=== PATIENT | male | born 1950 | race Two or more races ===

== ENCOUNTER 2018-08-05 13:31 | Inpatient (IN) | payer MEDICARE, MEDICAID ==
[~2018-08-05] VITALS: Ht 172.7 cm; Wt 89.8 kg
[2018-08-05 13:50] VITALS: BP 183/105
[2018-08-05] MEDS ORDERED: Vancomycin 1.5gm/D5W 250ml 250 ML IVPB ONE (14:00)
[2018-08-05 14:58] LABS: ANION GAP 9 mmol/L (5-15); BLOOD UREA NITROGEN 18 mg/dL (7-18); CALCIUM 8.9 MG/DL (8.5-10.1); CARBON DIOXIDE 29 MMOL/L (21-32); CHLORIDE 95 MMOL/L (98-107); CREATININE 1.2 MG/DL (0.55-1.30); POTASSIUM 4.7 MMOL/L (3.5-5.1); SODIUM 132 MMOL/L (136-145)
[2018-08-05 15:00] VITALS: BP 131/83
[2018-08-05 15:02] LABS: ALANINE AMINOTRANSFERASE 28 U/L (12-78); ALBUMIN 3.6 G/DL (3.4-5.0); ALBUMIN/GLOBULIN RATIO 0.8 (1.0-2.7); ALKALINE PHOSPHATASE 88 U/L (46-116); ASPARTATE AMINO TRANSFERASE 21 U/L (15-37); BILIRUBIN,TOTAL 0.6 MG/DL (0.2-1.0)
[2018-08-05 15:06] LABS: BASOPHILS % (AUTO) 0.5 % (0.0-2.0); EOSINOPHILS % (AUTO) 1.8 % (0.0-3.0); HEMATOCRIT 48.6 % (42.0-52.0); HEMOGLOBIN 16.1 G/DL (14.2-18.0); LYMPHOCYTES % (AUTO) 26.8 % (20.0-45.0); MEAN CORPUSCULAR VOLUME 88 FL (80-99); MONOCYTES % (AUTO) 7.8 % (1.0-10.0); NEUTROPHILS % (AUTO) 63.1 % (45.0-75.0); PLATELET COUNT 252 K/UL (150-450); RED BLOOD COUNT 5.51 M/UL (4.70-6.10); RED CELL DISTRIBUTION WIDTH 12.8 % (11.6-14.8); WHITE BLOOD COUNT 6.9 K/UL (4.8-10.8)
--- NOTE | 2018-08-05 15:28 | Emergency Room Report ---
History of Present Illness General Chief Complaint: Skin Rash/Abscess Source: Patient Present Illness HPI 68-year-old male presents ED for evaluation. Patient states he's had a ulcer to his right ankle for the last 2 months. States it is not healing with wound care and antibiotics. Was referred here. Pain is 9 out of 10, sharp, nonradiating. Denies fevers or chills. No other aggravating relieving factors. Denies any other associated symptoms Allergies: Coded Allergies: No Known Allergies (Unverified , 08/05/18) Patient History Past Medical History: DM, HTN Past Surgical History: none Pertinent Family History: none Social History: Denies: smoking, alcohol use, drug use Immunizations: UTD Reviewed Nursing Documentation: PMH: Agreed; PSxH: Agreed Nursing Documentation-PMH Hx Hypertension: Yes Hx Diabetes: Yes Review of Systems All Other Systems: negative except mentioned in HPI Physical Exam Vital Signs Date Time Temp Pulse Resp B/P (MAP) Pulse Ox O2 Delivery O2 Flow Rate FiO2 08/05/18 13:34 98.3 89 18 183/105 98 Room Air 98.2 Sp02 EP Interpretation: reviewed, normal General Appearance: no apparent distress, alert, GCS 15, non-toxic Head: normocephalic Eyes: bilateral eye normal inspection, bilateral eye PERRL ENT: normal ENT inspection Neck: normal inspection Respiratory: normal inspection Cardiovascular #1: normal inspection Gastrointestinal: normal inspection Rectal: deferred Genitourinary: no CVA tenderness Musculoskeletal: normal inspection Neurologic: alert, oriented x3, responsive, motor strength/tone normal, sensory intact, speech normal Psychiatric: judgement/insight normal, memory normal, mood/affect normal, no suicidal/homicidal ideation Skin: other - 3x3cm ulceration to R ankle. discharge Lymphatic: normal inspection Medical Decision Making Diagnostic Impression: Primary Impression: Non-healing ulcer of ankle Qualified Codes: L97.319 - Non-pressure chronic ulcer of right ankle with unspecified severity ER Course Hospital Course 68-year-old male presents to ED with ulceration to R ankle Differential diagnoses include: Cellulitis, abscess, rash. Clinical course Patient placed on stretcher. After initial history and physical I ordered labs , blood Cx, Wound Cx labs reviewed - no leukocytosis, Hb/Hct stable, no electrolyte abnormalities. antibiotics given. Case discussed with Dr Lynn and he agreed to accept the patient to his service for further care and support Diagnosis - non healign ulcer of ankle Patient admitted to floor in serious condition Labs Test 08/05/18 14:00 White Blood Count 6.9 K/UL (4.8-10.8) Red Blood Count 5.51 M/UL (4.70-6.10) Hemoglobin 16.1 G/DL (14.2-18.0) Hematocrit 48.6 % (42.0-52.0) Mean Corpuscular Volume 88 FL (80-99) Mean Corpuscular Hemoglobin 29.2 PG (27.0-31.0) Mean Corpuscular Hemoglobin Concent 33.1 G/DL (32.0-36.0) Red Cell Distribution Width 12.8 % (11.6-14.8) Platelet Count 252 K/UL (150-450) Mean Platelet Volume 5.7 FL (6.5-10.1) Neutrophils (%) (Auto) 63.1 % (45.0-75.0) Lymphocytes (%) (Auto) 26.8 % (20.0-45.0) Monocytes (%) (Auto) 7.8 % (1.0-10.0) Eosinophils (%) (Auto) 1.8 % (0.0-3.0) Basophils (%) (Auto) 0.5 % (0.0-2.0) Sodium Level 132 MMOL/L (136-145) Potassium Level 4.7 MMOL/L (3.5-5.1) Chloride Level 95 MMOL/L (98-107) Carbon Dioxide Level 29 MMOL/L (21-32) Anion Gap 9 mmol/L (5-15) Blood Urea Nitrogen 18 mg/dL (7-18) Creatinine 1.2 MG/DL (0.55-1.30) Estimat Glomerular Filtration Rate > 60 mL/min (>60) Glucose Level 275 MG/DL (74-106) Lactic Acid Level 2.50 mmol/L (0.4-2.0) Calcium Level 8.9 MG/DL (8.5-10.1) Total Bilirubin 0.6 MG/DL (0.2-1.0) Aspartate Amino Transf (AST/SGOT) 21 U/L (15-37) Alanine Aminotransferase (ALT/SGPT) 28 U/L (12-78) Alkaline Phosphatase 88 U/L (46-116) Total Protein 8.0 G/DL (6.4-8.2) Albumin 3.6 G/DL (3.4-5.0) Globulin 4.4 g/dL Albumin/Globulin Ratio 0.8 (1.0-2.7) Last Vital Signs Date Time Temp Pulse Resp B/P (MAP) Pulse Ox O2 Delivery O2 Flow Rate FiO2 08/05/18 13:34 98.3 89 18 183/105 98 Room Air 98.2 Status: improved Disposition: ADMITTED INPATIENT Condition: Serious Referrals: NON PHYSICIAN (PCP) Rogerio Kamara MD Aug 05, 2018 15:28
[2018-08-05 16:00] VITALS: BP 152/76
[2018-08-05 17:09] VITALS: BP 167/97
[2018-08-05] MEDS ORDERED: Albuterol/Ipratropium 3ml neb HHN PRN (17:30)
[2018-08-05] MEDS ORDERED: Miralax 17gm pkt ORAL PRN (17:30)
[2018-08-05] MEDS ORDERED: Nitroglycerin Subl 0.4mg tab SL PRN (17:30)
[2018-08-05] MEDS: Cefepime HCl 2 GM in D5W 110 ML IV SCH (18:15)
[2018-08-05 20:00] VITALS: BP 143/94
[2018-08-05] MEDS: Heparin 5000 units/ml inj SUBQ SCH (20:32)
[2018-08-05] MEDS: NovoLOG Insulin Flexpen SUBQ SCH (20:33)
[2018-08-05 23:58] VITALS: BP 134/84
[2018-08-06] MEDS: Morphine Sulfate 2mg/ml Inj IVP PRN ×2 (01:02→08:02)
[2018-08-06] MEDS ORDERED: Vancomycin 1 GM in D5W 275 ML IVPB SCH (02:00)
[2018-08-06 04:00] VITALS: BP 137/102
[2018-08-06] MEDS: NovoLOG Insulin Flexpen SUBQ SCH ×4 (05:53→21:11)
[2018-08-06 07:19] LABS: BASOPHILS % (AUTO) 0.5 % (0.0-2.0); EOSINOPHILS % (AUTO) 1.9 % (0.0-3.0); HEMOGLOBIN 15.5 G/DL (14.2-18.0); LYMPHOCYTES % (AUTO) 29.1 % (20.0-45.0); MEAN CORPUSCULAR VOLUME 89 FL (80-99); MONOCYTES % (AUTO) 8.6 % (1.0-10.0); NEUTROPHILS % (AUTO) 59.8 % (45.0-75.0); PLATELET COUNT 222 K/UL (150-450); RED BLOOD COUNT 5.16 M/UL (4.70-6.10); RED CELL DISTRIBUTION WIDTH 13.5 % (11.6-14.8); WHITE BLOOD COUNT 7.5 K/UL (4.8-10.8)
[2018-08-06 07:32] LABS: ALANINE AMINOTRANSFERASE 29 U/L (12-78); ALBUMIN 3.5 G/DL (3.4-5.0); ALBUMIN/GLOBULIN RATIO 0.8 (1.0-2.7); ALKALINE PHOSPHATASE 77 U/L (46-116); ASPARTATE AMINO TRANSFERASE 20 U/L (15-37); BILIRUBIN,TOTAL 0.7 MG/DL (0.2-1.0); BLOOD UREA NITROGEN 16 mg/dL (7-18); CHLORIDE 96 MMOL/L (98-107); CREATININE 1.1 MG/DL (0.55-1.30); POTASSIUM 5.3 MMOL/L (3.5-5.1); SODIUM 132 MMOL/L (136-145)
[2018-08-06 08:00] VITALS: BP 143/100
[2018-08-06] MEDS: Cefepime HCl 2 GM in D5W 110 ML IV SCH (08:03)
[2018-08-06] MEDS: Heparin 5000 units/ml inj SUBQ SCH ×2 (08:05→21:15)
--- NOTE | 2018-08-06 09:50 | Consultation ---
History of Present Illness General Date patient seen: Aug 06, 2018 Chief Complaint: Skin Rash/Abscess Reason for Consultation: Ulcer Present Illness HPI Mr. Fitch is a 68 yo male who presented to the ED on 08/05/18 with right ankle ulcer. The patient is diabetic and reports that the ulcer have been present for 2 months. He has been to his MD but wound care and antibiotics have not helped. He reports no Fever, Chill, Purulent drainage from the ulcer. The ulcer is painful however. He underwent to coursed of PO antibiotics: One week of cephalexin in May and one week of Bactrim at the end of June. Neither helped. He was told by a esthetician facialist that he needed debridment and vascular evaluation but he refused at that time. He is more open to this now. ID was consulted for antibiotic treatment of ankle ulcer PMHx/PSHx DM HTN SocHx No E/T/D FamHx Mom -DM Allergies: Coded Allergies: No Known Allergies (Unverified , 08/05/18) Medication History Unable to Obtain Active Prescriptions or Reported Meds Patient History Healthcare decision maker N Resuscitation status Advanced Directive on File Review of Systems All Other Systems: negative except mentioned in HPI Physical Exam Last 24 Hour Vital Signs Date Time Temp Pulse Resp B/P (MAP) Pulse Ox O2 Delivery O2 Flow Rate FiO2 08/06/18 08:02 97.7 08/06/18 04:00 97.7 85 18 137/102 (114) 97 97.7 08/05/18 23:58 98.7 78 17 134/84 (101) 99 98.7 08/05/18 21:00 Room Air 08/05/18 20:00 98.2 90 20 143/94 (110) 96 98.2 08/05/18 18:46 167/97 08/05/18 17:17 Room Air 08/05/18 17:09 97.9 92 20 167/97 (120) 99 97.9 08/05/18 16:36 98.4 86 25 147/74 98 Room Air 08/05/18 16:00 98.5 86 24 152/76 98 Room Air 98.5 08/05/18 15:00 97.8 98 25 131/83 98 97.8 08/05/18 13:50 98.2 92 18 183/105 98 Room Air 98.2 08/05/18 13:34 98.3 89 18 183/105 98 Room Air 98.2 Intake and Output 08/05/18 08/06/18 19:00 07:00 Intake Total 450 ml 300 ml Balance 450 ml 300 ml Intake Oral 230 ml 300 ml IV Total 220 ml # Voids 1 2 Laboratory Tests Test 08/05/18 14:00 08/05/18 16:15 08/06/18 05:20 White Blood Count 6.9 K/UL (4.8-10.8) 7.5 K/UL (4.8-10.8) Red Blood Count 5.51 M/UL (4.70-6.10) 5.16 M/UL (4.70-6.10) Hemoglobin 16.1 G/DL (14.2-18.0) 15.5 G/DL (14.2-18.0) Hematocrit 48.6 % (42.0-52.0) 46.0 % (42.0-52.0) Mean Corpuscular Volume 88 FL (80-99) 89 FL (80-99) Mean Corpuscular Hemoglobin 29.2 PG (27.0-31.0) 30.0 PG (27.0-31.0) Mean Corpuscular Hemoglobin Concent 33.1 G/DL (32.0-36.0) 33.7 G/DL (32.0-36.0) Red Cell Distribution Width 12.8 % (11.6-14.8) 13.5 % (11.6-14.8) Platelet Count 252 K/UL (150-450) 222 K/UL (150-450) Mean Platelet Volume 5.7 FL (6.5-10.1) L 5.8 FL (6.5-10.1) L Neutrophils (%) (Auto) 63.1 % (45.0-75.0) 59.8 % (45.0-75.0) Lymphocytes (%) (Auto) 26.8 % (20.0-45.0) 29.1 % (20.0-45.0) Monocytes (%) (Auto) 7.8 % (1.0-10.0) 8.6 % (1.0-10.0) Eosinophils (%) (Auto) 1.8 % (0.0-3.0) 1.9 % (0.0-3.0) Basophils (%) (Auto) 0.5 % (0.0-2.0) 0.5 % (0.0-2.0) Sodium Level 132 MMOL/L (136-145) L 132 MMOL/L (136-145) L Potassium Level 4.7 MMOL/L (3.5-5.1) 5.3 MMOL/L (3.5-5.1) H Chloride Level 95 MMOL/L (98-107) L 96 MMOL/L (98-107) L Carbon Dioxide Level 29 MMOL/L (21-32) Pending Anion Gap 9 mmol/L (5-15) Blood Urea Nitrogen 18 mg/dL (7-18) 16 mg/dL (7-18) Creatinine 1.2 MG/DL (0.55-1.30) 1.1 MG/DL (0.55-1.30) Estimat Glomerular Filtration Rate > 60 mL/min (>60) > 60 mL/min (>60) Glucose Level 275 MG/DL (74-106) H 191 MG/DL (74-106) H Lactic Acid Level 2.50 mmol/L (0.4-2.0) H 2.30 mmol/L (0.66-2.22) H Calcium Level 8.9 MG/DL (8.5-10.1) 9.0 MG/DL (8.5-10.1) Total Bilirubin 0.6 MG/DL (0.2-1.0) 0.7 MG/DL (0.2-1.0) Aspartate Amino Transf (AST/SGOT) 21 U/L (15-37) 20 U/L (15-37) Alanine Aminotransferase (ALT/SGPT) 28 U/L (12-78) 29 U/L (12-78) Alkaline Phosphatase 88 U/L (46-116) 77 U/L (46-116) Total Protein 8.0 G/DL (6.4-8.2) 7.8 G/DL (6.4-8.2) Albumin 3.6 G/DL (3.4-5.0) 3.5 G/DL (3.4-5.0) Globulin 4.4 g/dL 4.3 g/dL Albumin/Globulin Ratio 0.8 (1.0-2.7) L 0.8 (1.0-2.7) L Height (Feet): 5 Height (Inches): 8.00 Weight (Pounds): 198 Medications Current Medications Medications (Trade) Dose Ordered Sig/Caroline Route PRN Reason Start Time Stop Time Status Last Admin Dose Admin Acetaminophen (Tylenol) 650 mg Q4H PRN ORAL T>100.5 08/05/18 17:30 09/04/18 17:29 Albuterol/ Ipratropium (Albuterol/ Ipratropium) 3 ml Q4H PRN HHN Shortness of Breath 08/05/18 17:30 08/10/18 17:29 Cefepime HCl 2 gm/ Dextrose 110 ml @ 220 mls/hr EVERY 12 HOURS IV 08/05/18 18:30 08/12/18 18:29 08/06/18 08:03 Clonidine HCl (Catapres Tab) 0.1 mg Q6H PRN ORAL SBP>160 08/05/18 18:45 09/04/18 18:44 08/05/18 18:46 Dextrose (Dextrose 50%) 25 ml PRN IV hypoglycemia 08/05/18 17:30 09/04/18 17:29 Dextrose (Dextrose 50%) 50 ml PRN IV hypoglycemia 08/05/18 17:30 09/04/18 17:29 Heparin Sodium (Porcine) (Heparin 5000 units/ml) 5,000 units EVERY 12 HOURS SUBQ 08/05/18 21:00 09/04/18 20:59 08/06/18 08:05 Insulin Aspart (NovoLOG) BEFORE MEALS AND HS SUBQ 08/05/18 21:00 09/04/18 20:59 08/06/18 05:53 Morphine Sulfate (Morphine Sulfate) 2 mg Q4H PRN IVP Moderate Pain (Pain Scale 4-6) 08/05/18 17:30 08/12/18 17:29 08/06/18 08:02 Nitroglycerin (Ntg) 0.4 mg Q5MIN X 3 DOSES PRN SL Prn Chest Pain 08/05/18 17:30 09/04/18 17:29 Ondansetron HCl (Zofran) 4 mg Q6H PRN IVP Nausea & Vomiting 08/05/18 17:30 09/04/18 17:29 Polyethylene Glycol (Miralax) 17 gm DAILYPRN PRN ORAL Constipation 08/05/18 17:30 09/04/18 17:29 Temazepam (Restoril) 15 mg HSPRN PRN ORAL Insomnia 08/05/18 21:00 08/12/18 20:59 Vancomycin HCl (Vanco rx to dose) 1 ea DAILY PRN MISC . 08/05/18 17:45 09/04/18 17:44 Vancomycin HCl 1 gm/Dextrose 275 ml @ 183.3 mls/ hr Q12HR@0200,1400 IVPB 08/06/18 02:00 08/11/18 01:59 08/06/18 01:52 Objective Narrative Gen: NAD, well appearing, alert, On RA HEENT: NCAT, MMM, EOMI, PERRL, No Oral lesion, no scleral icterus~ NECK: full range of motion, supple, no meningismus, No LAD, No JVD LUNGS: CTAB, No W/C, No Accessory muscle use CARDS: RRR, S1, S2, No M/R/G ABD: Soft, NT, ND, No R/G, + BS, No HSM, No Masses : Deferred Ext: C/C/E, Pulses 2+ B/L (DP, Rad), Right ankle with 3x3 cm ulcer with no discharge. No foul odor. NEURO: A/O x 4, Strength and Sensation Grossly intact PSYCH: mood/affect normal SKIN: warm/dry, No rashes, Assessment/Plan Assessment/Plan Right ankle ulcer No Sign of active infection Wound Cx pending DM HTN P: D/C Abx Vancomycin and Cefepime. Podiatry or vascular surgery evaluation Patient may need revascularization to facilitate healing f/u wound culture Monitor CBC and Temps Thank you for this consult. We will continue to follow the patient during this hospitalization. Tripp Canas MD Aug 06, 2018 09:50
[2018-08-06 10:05] LABS: CARBON DIOXIDE 28 MMOL/L (21-32)
[2018-08-06 10:06] LABS: ANION GAP 11 mmol/L (5-15)
[2018-08-06 12:00] VITALS: BP 161/98
--- NOTE | 2018-08-06 13:36 | General Progress Note ---
Progress Note Progress Note [id number] full note dictated Ginna Walker MD Aug 06, 2018 13:36
--- NOTE | 2018-08-06 14:01 | Consultation ---
Consult Note Assessment/Plan A/ 1) Chronic ulcer medial right ankle 2) DM 3) Pain RLE P/ 1) Possible claudication symptoms - arterial ultz BLE 2) X-ray right ankle 3) Wound care orders using Santyl 4) ESR, CRP 5) Will follow Thank you Jack Ch DPM Aug 06, 2018 14:01
--- NOTE | 2018-08-06 14:31 | Consultation ---
History of Present Illness General Date patient seen: Aug 06, 2018 Chief Complaint: Skin Rash/Abscess Reason for Consultation: Ulcer Present Illness HPI 68-year-old male with hx of DM, HTN presented to ED for evaluation an ulcer to his right ankle for the last 2 months. it is not healing with wound care and antibiotics. He is having pain aroundd 9 out of 10, sharp, nonradiating. Denies fevers or chills. No other aggravating relieving factors. Denies any other associated symptoms Allergies: Coded Allergies: No Known Allergies (Unverified , 08/05/18) Medication History Unable to Obtain Active Prescriptions or Reported Meds Patient History Healthcare decision maker N Resuscitation status Advanced Directive on File Past Medical/Surgical History Past Medical/Surgical History: (1) Diabetes mellitus (2) HTN (hypertension) Review of Systems All Other Systems: negative except mentioned in HPI Physical Exam General Appearance: WD/WN, no apparent distress Lines, tubes and drains: peripheral HEENT: normocephalic, atraumatic Neck: non-tender, normal alignment Respiratory/Chest: chest wall non-tender, lungs clear Breasts: no masses Cardiovascular/Chest: normal peripheral pulses Abdomen: normal bowel sounds Genitourinary/Rectal: normal genital exam Extremities: normal range of motion Skin Exam: normal pigmentation Neurologic: collar fuser II-XII grossly normal Last 24 Hour Vital Signs Date Time Temp Pulse Resp B/P (MAP) Pulse Ox O2 Delivery O2 Flow Rate FiO2 08/06/18 12:04 161/98 08/06/18 12:00 98.5 88 17 161/98 (119) 98 98.5 08/06/18 09:00 Room Air 08/06/18 08:32 97.7 08/06/18 08:02 97.7 08/06/18 08:00 98.6 96 19 143/100 (114) 94 98.6 08/06/18 04:00 97.7 85 18 137/102 (114) 97 97.7 08/05/18 23:58 98.7 78 17 134/84 (101) 99 98.7 08/05/18 21:00 Room Air 08/05/18 20:00 98.2 90 20 143/94 (110) 96 98.2 08/05/18 18:46 167/97 08/05/18 17:17 Room Air 08/05/18 17:09 97.9 92 20 167/97 (120) 99 97.9 08/05/18 16:36 98.4 86 25 147/74 98 Room Air 08/05/18 16:00 98.5 86 24 152/76 98 Room Air 98.5 08/05/18 15:00 97.8 98 25 131/83 98 97.8 Intake and Output 08/05/18 08/06/18 19:00 07:00 Intake Total 450 ml 300 ml Balance 450 ml 300 ml Intake Oral 230 ml 300 ml IV Total 220 ml # Voids 1 2 Laboratory Tests Test 08/05/18 16:15 08/06/18 05:20 Lactic Acid Level 2.30 mmol/L (0.66-2.22) H White Blood Count 7.5 K/UL (4.8-10.8) Red Blood Count 5.16 M/UL (4.70-6.10) Hemoglobin 15.5 G/DL (14.2-18.0) Hematocrit 46.0 % (42.0-52.0) Mean Corpuscular Volume 89 FL (80-99) Mean Corpuscular Hemoglobin 30.0 PG (27.0-31.0) Mean Corpuscular Hemoglobin Concent 33.7 G/DL (32.0-36.0) Red Cell Distribution Width 13.5 % (11.6-14.8) Platelet Count 222 K/UL (150-450) Mean Platelet Volume 5.8 FL (6.5-10.1) L Neutrophils (%) (Auto) 59.8 % (45.0-75.0) Lymphocytes (%) (Auto) 29.1 % (20.0-45.0) Monocytes (%) (Auto) 8.6 % (1.0-10.0) Eosinophils (%) (Auto) 1.9 % (0.0-3.0) Basophils (%) (Auto) 0.5 % (0.0-2.0) Sodium Level 132 MMOL/L (136-145) L Potassium Level 5.3 MMOL/L (3.5-5.1) H Chloride Level 96 MMOL/L (98-107) L Carbon Dioxide Level 28 MMOL/L (21-32) Anion Gap 11 mmol/L (5-15) Blood Urea Nitrogen 16 mg/dL (7-18) Creatinine 1.1 MG/DL (0.55-1.30) Estimat Glomerular Filtration Rate > 60 mL/min (>60) Glucose Level 191 MG/DL (74-106) H Calcium Level 9.0 MG/DL (8.5-10.1) Total Bilirubin 0.7 MG/DL (0.2-1.0) Aspartate Amino Transf (AST/SGOT) 20 U/L (15-37) Alanine Aminotransferase (ALT/SGPT) 29 U/L (12-78) Alkaline Phosphatase 77 U/L (46-116) Total Protein 7.8 G/DL (6.4-8.2) Albumin 3.5 G/DL (3.4-5.0) Globulin 4.3 g/dL Albumin/Globulin Ratio 0.8 (1.0-2.7) L Height (Feet): 5 Height (Inches): 8.00 Weight (Pounds): 198 Medications Current Medications Medications (Trade) Dose Ordered Sig/Caroline Route PRN Reason Start Time Stop Time Status Last Admin Dose Admin Acetaminophen (Tylenol) 650 mg Q4H PRN ORAL T>100.5 08/05/18 17:30 09/04/18 17:29 Albuterol/ Ipratropium (Albuterol/ Ipratropium) 3 ml Q4H PRN HHN Shortness of Breath 08/05/18 17:30 08/10/18 17:29 Clonidine HCl (Catapres Tab) 0.1 mg Q6H PRN ORAL SBP>160 08/05/18 18:45 09/04/18 18:44 08/06/18 12:04 Dextrose (Dextrose 50%) 25 ml PRN IV hypoglycemia 08/05/18 17:30 09/04/18 17:29 Dextrose (Dextrose 50%) 50 ml PRN IV hypoglycemia 08/05/18 17:30 09/04/18 17:29 Heparin Sodium (Porcine) (Heparin 5000 units/ml) 5,000 units EVERY 12 HOURS SUBQ 08/05/18 21:00 09/04/18 20:59 08/06/18 08:05 Insulin Aspart (NovoLOG) BEFORE MEALS AND HS SUBQ 08/05/18 21:00 09/04/18 20:59 08/06/18 11:54 Morphine Sulfate (Morphine Sulfate) 2 mg Q4H PRN IVP Moderate Pain (Pain Scale 4-6) 08/05/18 17:30 08/12/18 17:29 08/06/18 08:02 Nitroglycerin (Ntg) 0.4 mg Q5MIN X 3 DOSES PRN SL Prn Chest Pain 08/05/18 17:30 09/04/18 17:29 Ondansetron HCl (Zofran) 4 mg Q6H PRN IVP Nausea & Vomiting 08/05/18 17:30 09/04/18 17:29 Polyethylene Glycol (Miralax) 17 gm DAILYPRN PRN ORAL Constipation 08/05/18 17:30 09/04/18 17:29 Temazepam (Restoril) 15 mg HSPRN PRN ORAL Insomnia 08/05/18 21:00 08/12/18 20:59 Assessment/Plan Problem List: (1) Cellulitis ICD Codes: L03.90 - Cellulitis, unspecified SNOMED: 627567310 (2) Non-healing ulcer of ankle ICD Codes: L97.309 - Non-pressure chronic ulcer of unspecified ankle with unspecified severity SNOMED: 933564053 Qualifiers: Qualified Codes: L97.319 - Non-pressure chronic ulcer of right ankle with unspecified severity (3) Diabetes mellitus ICD Codes: E11.9 - Type 2 diabetes mellitus without complications SNOMED: 00756657 (4) HTN (hypertension) ICD Codes: I10 - Essential (primary) hypertension SNOMED: 56986350 Assessment/Plan wound care iv abx sliding scale diabetic diet monitor BP symptomatic treatment watch electrolytes. Stefanie Babcock MD Aug 06, 2018 14:31
[2018-08-06 16:00] VITALS: BP 159/76
--- NOTE | 2018-08-06 16:12 | Diagnostic Imaging Report ---
Indication: Pain, medial ankle ulcer Technique: 3 views of the right ankle Comparison: none Findings: Soft tissue ulceration overlies the medial malleolus. No underlying osseous erosions or unusual periosteal reaction. No acute fractures. No dislocations. The joint spaces are preserved. There are vascular calcifications. There are small plantar and calcaneal spurs Impression: Medial ankle soft tissue ulcer. No plain radiographic evidence of osseous myelitis. Note, however, limited sensitivity of plain radiographs for such. Consider MRI or bone scan for more sensitive characterization if there is high clinical suspicion
[2018-08-06 17:13] LABS: APPEARANCE,URINE CLEAR; BILIRUBIN, URINE NEGATIVE (NEGATIVE); COLOR,URINE PALE YELLOW; GLUCOSE, URINE (UA) 3+ (NEGATIVE); KETONES,URINE NEGATIVE (NEGATIVE); LEUKOCYTE ESTERASE ,URINE NEGATIVE (NEGATIVE); NITRITE,URINE NEGATIVE (NEGATIVE); PH,URINE 6 (4.5-8.0); PROTEIN,URINE NEGATIVE (NEGATIVE); UROBILINOGEN,URINE NORMAL MG/DL (0.0-1.0)
[2018-08-06 20:00] VITALS: BP 147/90
--- NOTE | 2018-08-06 21:00 | History and Physical Report ---
DATE OF ADMISSION: 08/05/2018 TIME: 12 noon. CONSULTANTS: 1. Stefanie Babcock M.D. 2. Dominick Adan M.D. 3. Alex Chacon M.D. 4. Jack Mckeon D.P.M. CHIEF COMPLAINT: Right ankle ulcer, nonhealing and hypertensive urgency. BRIEF HISTORY: This is a 68-year-old male who lives at home, a few months ago with slight cut in the right ankle. It gotten worse over the last became ulcerative. The patient came to the ER last night with also hypertensive urgency. The patient was admitted to medical floor for further treatment. Currently, calm in bed, sitting, no complaint. REVIEW OF SYSTEMS: No chest pain. No shortness of breath. No nausea, vomiting, or diarrhea. PAST MEDICAL HISTORY: Hypertension, diabetes, and right ankle ulcer. PAST SURGICAL HISTORY: None. ALLERGIES: Denies. SOCIAL HISTORY: No smoking. Occasional alcohol. No intravenous drug abuse. FAMILY HISTORY: Noncontributory. PHYSICAL EXAMINATION: GENERAL: Calm in bed, oriented x3, no acute distress. VITAL SIGNS: Temperature is 98 degrees, pulse 88, respirations 17, and blood pressure 161/98. CARDIOVASCULAR: No murmur. LUNGS: Distant and clear. ABDOMEN: Bowel sound positive. Nontender. Nondistended. EXTREMITIES: No cyanosis, clubbing, or edema. Right ankle dressing gauze is clean and dry. NEUROLOGIC: Cranial nerves II through XII are grossly intact. Deep tendon reflexes 2+/4. Muscle strength 5/5. LABORATORY DATA: CBC is normal. BMP shows sodium 132, potassium 5.3, chloride 96, and glucose 191. MEDICATIONS: Include vancomycin, heparin, temazepam, insulin, clonidine, albuterol, Tylenol, Zofran, nitroglycerin. ASSESSMENT: 1. Right ankle ulcer, nonhealing wound. 2. Hypertensive urgency. 3. Diabetes. 4. Hyperkalemia. PLAN: 1. Continue premedications. 2. Wound care. 3. Blood pressure and blood sugar control. 4. Antibiotics per Infectious Disease. 5. Dietary followup. 6. Pain control. 7. We will continue to follow the patient. 8. CBC and BMP in the morning. Robert Lynn D.O. DR: RYAN JOB#: [id number] CC:
--- NOTE | 2018-08-06 21:45 | Consultation ---
DATE OF CONSULTATION: 08/06/2018 NEPHROLOGY CONSULTATION CONSULTING PHYSICIAN: Ginna Walker M.D. REFERRING PHYSICIAN: Robert Lynn D.O. REASON FOR CONSULTATION: Hyponatremia and hyperkalemia. HISTORY OF PRESENT ILLNESS: The patient is a 68-year-old male with past medical history significant for history of diabetes, hypertension, diabetic neuropathy, diabetic retinopathy, history of right lower extremity ulceration for about 2 months. The patient underwent oral antibiotic treatment without any improvement. The patient was presented to emergency room, was admitted in the hospital. I was called for management of renal disease and electrolyte imbalance. PAST MEDICAL HISTORY: 1. Diabetes. 2. Hypertension. 3. Dyslipidemia. 4. Diabetic neuropathy. 5. Diabetic retinopathy. PAST SURGICAL HISTORY: None. ALLERGIES: No known drug allergies. FAMILY HISTORY: Positive for history of diabetes. REVIEW OF SYSTEMS: GENERAL: He denies any weight loss, weight gain, fever, chills or night sweats. HEAD AND NECK: Denies any dysphagia, odynophagia, blurry vision, headache, or neck stiffness. PULMONARY: Mild shortness of breath. No cough or sputum. CARDIOVASCULAR: No chest pain or palpitations. GASTROINTESTINAL: No nausea, vomiting, diarrhea, hematemesis, or hematochezia. GENITOURINARY: Denies any dysuria, frequency, or hematuria. MUSCULOSKELETAL: Denies any weakness or numbness. PHYSICAL EXAMINATION: VITAL SIGNS: The patient had temperature of 98 degrees, blood pressure of 143/100, pulse rate of 96, and respiratory rate of 18. HEAD AND NECK: No JVP. No LAD. No thyromegaly. Extraocular movement intact. Pupils are reactive to light and accommodation. LUNGS: Clear to auscultation. CARDIAC: Regular rate and rhythm. S1 and S2 no murmur. No rub. ABDOMEN: Soft, nontender, and nondistended. No organomegaly. EXTREMITIES: The right lower extremity ulceration. No edema. No clubbing. No cyanosis. LABORATORY AND DIAGNOSTIC DATA: Sodium 132, potassium 5.3, chloride 96, bicarbonate 28, BUN of 16, and creatinine of 1.1. Calcium of 9. AST of 20, ALT of 29, and alkaline phosphatase of . CBC revealed WBC count of 7.5, hemoglobin of 15 and hematocrit of 46 and platelet count of 222. ASSESSMENT: 1. Isovolemic hyponatremia. 2. Hyperkalemia. 3. Rule out . 4. Rule out obstruction. 5. Right lower extremity ulceration. 6. Diabetes. PLAN: Plan for the patient is to obtain UA and check the random urine protein creatinine ratio to calculate the proteinuria. Check the urine sodium and creatinine to calculate fractional excretion of sodium. Check a microalbumin level. I would also check scan of the bladder. I would monitor renal function and electrolytes closely. Again, I would like to thank, Dr. Robert Lynn, for allowing me to participate in the care of this patient. Ginna Walker M.D. DR: MAYO JOB#: [id number] CC:
--- NOTE | 2018-08-06 22:15 | Consultation ---
DATE OF CONSULTATION: 08/06/2018 CONSULTING PHYSICIAN: Jack Mckeon D.P.M. REQUESTING PHYSICIAN: Robert Lynn D.O. REASON FOR CONSULTATION: Chronic medial right ankle wound x2 months in the presence of diabetes mellitus. HISTORY OF PRESENT ILLNESS: The patient is a 68-year-old male, who was admitted to [facility] on 08/05/2018 for nonhealing ankle ulcer. The patient states that the wound started from a small mass on his medial right ankle and continued to progress into a full-thickness wound. He sought care from his primary care physician who prescribed the medication and topical, which ultimately failed and was referred to another physician for continued care. The patient noted that his wound continued to be nonhealing, increasingly painful and sought emergent care. The patient also complains of calf pain during ambulation and during sleeping. PAST MEDICAL HISTORY: Significant for diabetes and hypertension. MEDICATIONS: Per MAR and include vancomycin and cefepime initial doses, which have been discontinued, heparin and pain medication. ALLERGIES: He has no known drug allergies. SOCIAL HISTORY: Noncontributory. FAMILY HISTORY: Noncontributory. REVIEW OF SYSTEMS: HEENT: The patient denies any headaches, blurred vision, or ringing in the ears. CARDIORESPIRATORY: The patient denies any chest pain or shortness of breath. GENITOURINARY: The patient denies any urgency, frequency, burning upon urination or hematuria. GASTROINTESTINAL: The patient denies any constipation, diarrhea or blood in the stool. PHYSICAL EXAMINATION: VITAL SIGNS: Temperature is 98.5, pulse is 88, respirations 17, blood pressure is 161/98, and saturating 98% on room air. LOWER EXTREMITY: Vascular, weakly palpable pulses noted bilaterally. Feet are equally warm. There is 1+ pitting edema noted on the right lower extremity. No edema on the left. No cyanosis is noted. DERMATOLOGICAL: Full-thickness ulceration on the medial aspect of the right ankle, which is 50% necrotic and 50% slough. No granulation tissue noted. No bone or tendon is exposed. No discharge is noted. No malodor is noted. The periwound skin is hyperpigmented, but otherwise well defined. No other open wounds or pulses noted bilaterally. NEUROLOGICAL: Protective thresholds intact. Achilles, deep tendon reflex 2+ bilateral. No spasticity noted. MUSCULOSKELETAL: He has got 4/5 muscle strength noted in anterolateral and posterior muscle groups of bilateral lower extremities. No gross deformities noted. The patient was ambulatory. LABORATORY AND DIAGNOSTIC DATA: White blood cell count is 7.5, hemoglobin and hematocrit is 15.5 and 46.0 and platelet count is 222. Sodium is 132, potassium is 5.3, chloride is 96, BUN is 16, creatinine is 1.1 and glucose is 191. Lactic acid is 2.30. Albumin is 3.5. Cultures taken and are pending show many white blood cells, rare gram-negative rods. Lower extremity ultrasound notes no deep venous thrombosis. ASSESSMENT: 1. Chronic ulcer medial right ankle. 2. Diabetes mellitus. 3. Pain right lower extremity-claudication/rest pain?. PLAN: 1. Possible claudication and rest pain symptoms. Arterial ultrasound of bilateral lower extremities were ordered. 2. We will order x-rays of the right ankle. 3. Wound care orders were placed specifying cleansing the wound with normal saline, patting it dry and applying Santyl ointment with dry dressing daily. 4. We will order a sedimentation rate and CRP to evaluate inflammatory markers. 5. We will follow. Thank you for the courtesy of this consultation, Dr. Lynn. Jack Mckeon D.P.M. DR: CHATA JOB#: [id number] CC:
[2018-08-07] VITALS: BP 152/96
[2018-08-07] MEDS: Morphine Sulfate 2mg/ml Inj IVP PRN ×2 (01:21→11:47)
[2018-08-07 04:46] VITALS: BP 148/96
[2018-08-07] MEDS: NovoLOG Insulin Flexpen SUBQ SCH ×4 (06:17→20:44)
[2018-08-07 06:50] LABS: BASOPHILS % (AUTO) 0.4 % (0.0-2.0); EOSINOPHILS % (AUTO) 1.9 % (0.0-3.0); HEMATOCRIT 47.8 % (42.0-52.0); HEMOGLOBIN 16.1 G/DL (14.2-18.0); MEAN CORPUSCULAR VOLUME 89 FL (80-99); NEUTROPHILS % (AUTO) 57.7 % (45.0-75.0); PLATELET COUNT 240 K/UL (150-450); RED BLOOD COUNT 5.37 M/UL (4.70-6.10); RED CELL DISTRIBUTION WIDTH 13.2 % (11.6-14.8)
[2018-08-07 07:04] LABS: ALANINE AMINOTRANSFERASE 36 U/L (12-78); ALBUMIN 3.8 G/DL (3.4-5.0); ALBUMIN/GLOBULIN RATIO 0.8 (1.0-2.7); ALKALINE PHOSPHATASE 80 U/L (46-116); ANION GAP 6 mmol/L (5-15); ASPARTATE AMINO TRANSFERASE 23 U/L (15-37); BILIRUBIN,TOTAL 0.8 MG/DL (0.2-1.0); BLOOD UREA NITROGEN 15 mg/dL (7-18); CALCIUM 9.7 MG/DL (8.5-10.1); CARBON DIOXIDE 33 MMOL/L (21-32); CHLORIDE 93 MMOL/L (98-107); CREATININE 1.1 MG/DL (0.55-1.30); POTASSIUM 4.4 MMOL/L (3.5-5.1); SODIUM 132 MMOL/L (136-145)
[2018-08-07 08:00] VITALS: BP 153/113
[2018-08-07 08:20] LABS: PHOSPHORUS 4.4 MG/DL (2.5-4.9)
[2018-08-07] MEDS: Heparin 5000 units/ml inj SUBQ SCH ×2 (09:00→20:43)
--- NOTE | 2018-08-07 11:07 | Diagnostic Imaging Report ---
Indication: Bilateral leg pain Technique: Grayscale and duplex images of the bilateral lower extremity arteries Comparison: none Findings: At all levels, waveforms are either triphasic or biphasic, demonstrating sharp systolic peaks and no evidence of diminished amplitude distally Impression: Negative for evidence of lower extremity arterial insufficiency
[2018-08-07 12:00] VITALS: BP 152/98
--- NOTE | 2018-08-07 13:14 | Infectious Diseases Prog Note ---
Assessment/Plan Assessment/Plan Right ankle ulcer No Sign of active infection Wound Cx pending 08/06/18 - US - Negative for evidence of lower extremity arterial insufficiency DM HTN P: D/C Abx Vancomycin and Cefepime. f/u Podiatry recommendations f/u wound culture Monitor CBC and Temps We will continue to follow the patient during this hospitalization. Subjective Allergies: Coded Allergies: No Known Allergies (Unverified , 08/05/18) Subjective Patient with continued pain at site of ulcer No fever Objective Vital Signs Last 24 Hour Vital Signs Date Time Temp Pulse Resp B/P (MAP) Pulse Ox O2 Delivery O2 Flow Rate FiO2 08/07/18 12:00 98.5 101 18 152/98 (116) 95 98.5 08/07/18 08:30 Room Air 08/07/18 08:09 91 16 Room Air 08/07/18 08:00 97.6 105 19 153/113 (126) 96 97.6 08/07/18 04:46 97.8 96 18 148/96 (113) 97 97.8 08/07/18 01:51 98.0 08/07/18 01:21 98.0 08/07/18 00:00 98.2 85 18 152/96 (114) 99 98.2 08/06/18 21:00 Room Air 08/06/18 20:05 82 18 Room Air 08/06/18 20:00 98.0 69 18 147/90 (109) 97 98.0 08/06/18 16:00 92.4 83 18 159/76 (103) 98 92.4 Height (Feet): 5 Height (Inches): 8.00 Weight (Pounds): 198 Objective Gen: NAD, well appearing, alert HEENT: NCAT, MMM, EOMI, no scleral icterus LUNGS: CTAB, No W/C, No Accessory muscle use CARDS: RRR, S1, S2, No M/R/G ABD: Soft, NT, ND, No R/G, + BS Ext: C/C/E, Pulses 2+ B/L (DP, Rad), Right ankle with 3x3 cm ulcer covered with bandage NEURO: A/O x 4, Strength and Sensation Grossly intact Microbiology Date/Time Source Procedure Growth Status 08/05/18 14:20 Blood Blood Culture - Preliminary NO GROWTH AFTER 24 HOURS Resulted 08/05/18 14:00 Blood Blood Culture - Preliminary NO GROWTH AFTER 24 HOURS Resulted 08/05/18 14:00 Ankle Right Gram Stain - Final Resulted 08/05/18 14:00 Wound Culture - Preliminary Gram Negative Bacillus 1 YEAST Resulted Laboratory Tests Test 08/06/18 17:00 08/07/18 05:10 Urine Color Pale yellow Urine Appearance Clear Urine pH 6 (4.5-8.0) Urine Specific [place] 1.010 (1.005-1.035) Urine Protein Negative (NEGATIVE) Urine Glucose (UA) 3+ (NEGATIVE) H Urine Ketones Negative (NEGATIVE) Urine Blood Negative (NEGATIVE) Urine Nitrite Negative (NEGATIVE) Urine Bilirubin Negative (NEGATIVE) Urine Urobilinogen Normal MG/DL (0.0-1.0) Urine Leukocyte Esterase Negative (NEGATIVE) Urine RBC 0 /HPF (0 - 0) Urine WBC 0 /HPF (0 - 0) Urine Squamous Epithelial Cells None /LPF (NONE/OCC) Urine Bacteria None /HPF (NONE) Urine Eosinophils None seen (NONE SEEN) Urine Random Creatinine Pending Urine Random Microalbumin Pending Urine Random Sodium 97 mmol/L (20-110) Urine Creatinine 31.5 MG/DL (30.0-125.0) Urine Microalbumin/Creatinine Ratio Pending Urine Potassium Timed 25 mmol/L (12-62) White Blood Count 8.0 K/UL (4.8-10.8) Red Blood Count 5.37 M/UL (4.70-6.10) Hemoglobin 16.1 G/DL (14.2-18.0) Hematocrit 47.8 % (42.0-52.0) Mean Corpuscular Volume 89 FL (80-99) Mean Corpuscular Hemoglobin 30.0 PG (27.0-31.0) Mean Corpuscular Hemoglobin Concent 33.7 G/DL (32.0-36.0) Red Cell Distribution Width 13.2 % (11.6-14.8) Platelet Count 240 K/UL (150-450) Mean Platelet Volume 5.7 FL (6.5-10.1) L Neutrophils (%) (Auto) 57.7 % (45.0-75.0) Lymphocytes (%) (Auto) 31.0 % (20.0-45.0) Monocytes (%) (Auto) 9.0 % (1.0-10.0) Eosinophils (%) (Auto) 1.9 % (0.0-3.0) Basophils (%) (Auto) 0.4 % (0.0-2.0) Erythrocyte Sedimentation Rate 36 MM/HR (0-20) H Sodium Level 132 MMOL/L (136-145) L Potassium Level 4.4 MMOL/L (3.5-5.1) Chloride Level 93 MMOL/L (98-107) L Carbon Dioxide Level 33 MMOL/L (21-32) H Anion Gap 6 mmol/L (5-15) Blood Urea Nitrogen 15 mg/dL (7-18) Creatinine 1.1 MG/DL (0.55-1.30) Estimat Glomerular Filtration Rate > 60 mL/min (>60) Glucose Level 192 MG/DL (74-106) H Calcium Level 9.7 MG/DL (8.5-10.1) Phosphorus Level 4.4 MG/DL (2.5-4.9) Magnesium Level 2.2 MG/DL (1.8-2.4) Total Bilirubin 0.8 MG/DL (0.2-1.0) Aspartate Amino Transf (AST/SGOT) 23 U/L (15-37) Alanine Aminotransferase (ALT/SGPT) 36 U/L (12-78) Alkaline Phosphatase 80 U/L (46-116) C-Reactive Protein, Quantitative 2.3 mg/dL (0.00-0.90) H Total Protein 8.5 G/DL (6.4-8.2) H Albumin 3.8 G/DL (3.4-5.0) Globulin 4.7 g/dL Albumin/Globulin Ratio 0.8 (1.0-2.7) L Current Medications Medications (Trade) Dose Ordered Sig/Caroline Route PRN Reason Start Time Stop Time Status Last Admin Dose Admin Acetaminophen (Tylenol) 650 mg Q4H PRN ORAL T>100.5 08/05/18 17:30 09/04/18 17:29 Albuterol/ Ipratropium (Albuterol/ Ipratropium) 3 ml Q4H PRN HHN Shortness of Breath 08/05/18 17:30 08/10/18 17:29 Clonidine HCl (Catapres Tab) 0.1 mg Q6H PRN ORAL SBP>160 08/05/18 18:45 09/04/18 18:44 08/06/18 12:04 Collagenase (Santyl) 1 applic DAILY TOPIC 08/07/18 09:00 09/06/18 08:59 08/07/18 10:13 Dextrose (Dextrose 50%) 25 ml PRN IV hypoglycemia 08/05/18 17:30 09/04/18 17:29 Dextrose (Dextrose 50%) 50 ml PRN IV hypoglycemia 08/05/18 17:30 09/04/18 17:29 Heparin Sodium (Porcine) (Heparin 5000 units/ml) 5,000 units EVERY 12 HOURS SUBQ 08/05/18 21:00 09/04/18 20:59 08/06/18 21:15 Insulin Aspart (NovoLOG) BEFORE MEALS AND HS SUBQ 08/05/18 21:00 09/04/18 20:59 08/07/18 12:25 Morphine Sulfate (Morphine Sulfate) 2 mg Q4H PRN IVP Moderate Pain (Pain Scale 4-6) 08/05/18 17:30 08/12/18 17:29 08/07/18 11:47 Nitroglycerin (Ntg) 0.4 mg Q5MIN X 3 DOSES PRN SL Prn Chest Pain 08/05/18 17:30 09/04/18 17:29 Ondansetron HCl (Zofran) 4 mg Q6H PRN IVP Nausea & Vomiting 08/05/18 17:30 09/04/18 17:29 Polyethylene Glycol (Miralax) 17 gm DAILYPRN PRN ORAL Constipation 08/05/18 17:30 09/04/18 17:29 Temazepam (Restoril) 15 mg HSPRN PRN ORAL Insomnia 08/05/18 21:00 08/12/18 20:59 Tripp Canas MD Aug 07, 2018 13:14
--- NOTE | 2018-08-07 13:52 | General Progress Note ---
Subjective Constitutional: Reports: weakness Allergies: Coded Allergies: No Known Allergies (Unverified , 08/05/18) All Systems: reviewed and negative except above Subjective sitting calm Objective Last 24 Hour Vital Signs Date Time Temp Pulse Resp B/P (MAP) Pulse Ox O2 Delivery O2 Flow Rate FiO2 08/07/18 12:00 98.5 101 18 152/98 (116) 95 98.5 08/07/18 08:30 Room Air 08/07/18 08:09 91 16 Room Air 08/07/18 08:00 97.6 105 19 153/113 (126) 96 97.6 08/07/18 04:46 97.8 96 18 148/96 (113) 97 97.8 08/07/18 01:51 98.0 08/07/18 01:21 98.0 08/07/18 00:00 98.2 85 18 152/96 (114) 99 98.2 08/06/18 21:00 Room Air 08/06/18 20:05 82 18 Room Air 08/06/18 20:00 98.0 69 18 147/90 (109) 97 98.0 08/06/18 16:00 92.4 83 18 159/76 (103) 98 92.4 Intake and Output 08/06/18 08/07/18 19:00 07:00 Intake Total 1090 ml Balance 1090 ml Intake Oral 240 ml Other 850 ml # Voids 7 Laboratory Tests 08/06/18 17:00: Urine Color Pale yellow, Urine Appearance Clear, Urine pH 6, Urine Specific [place] 1.010, Urine Protein Negative, Urine Glucose (UA) 3+H, Urine Ketones Negative, Urine Blood Negative, Urine Nitrite Negative, Urine Bilirubin Negative , Urine Urobilinogen Normal, Urine Leukocyte Esterase Negative, Urine RBC 0, Urine WBC 0, Urine Squamous Epithelial Cells None, Urine Bacteria None, Urine Eosinophils None seen, Urine Random Creatinine [Pending], Urine Random Microalbumin [Pending], Urine Random Sodium 97, Urine Creatinine 31.5, Urine Microalbumin/Creatinine Ratio [Pending], Urine Potassium Timed 25 08/07/18 05:10: White Blood Count 8.0, Red Blood Count 5.37, Hemoglobin 16.1, Hematocrit 47.8, Mean Corpuscular Volume 89, Mean Corpuscular Hemoglobin 30.0, Mean Corpuscular Hemoglobin Concent 33.7, Red Cell Distribution Width 13.2, Platelet Count 240, Mean Platelet Volume 5.7L, Neutrophils (%) (Auto) 57.7, Lymphocytes (%) (Auto) 31.0, Monocytes (%) (Auto) 9.0, Eosinophils (%) (Auto) 1.9, Basophils (%) (Auto ) 0.4, Erythrocyte Sedimentation Rate 36H, Sodium Level 132L, Potassium Level 4.4, Chloride Level 93L, Carbon Dioxide Level 33H, Anion Gap 6, Blood Urea Nitrogen 15, Creatinine 1.1, Estimat Glomerular Filtration Rate > 60, Glucose Level 192H, Calcium Level 9.7, Phosphorus Level 4.4, Magnesium Level 2.2, Total Bilirubin 0.8, Aspartate Amino Transf (AST/SGOT) 23, Alanine Aminotransferase ( ALT/SGPT) 36, Alkaline Phosphatase 80, C-Reactive Protein, Quantitative 2.3H, Total Protein 8.5H, Albumin 3.8, Globulin 4.7, Albumin/Globulin Ratio 0.8L Height (Feet): 5 Height (Inches): 8.00 Weight (Pounds): 198 General Appearance: alert EENT: normal ENT inspection Neck: normal alignment Cardiovascular: normal peripheral pulses, normal rate, regular rhythm Respiratory/Chest: chest wall non-tender, lungs clear, normal breath sounds Abdomen: normal bowel sounds, non tender, soft Extremities: normal inspection Edema: no edema noted Arm (L), no edema noted Arm (R), no edema noted Leg (L), no edema noted Leg (R), no edema noted Pedal (L), no edema noted Pedal (R), no edema noted Generalized Neurologic: responsive, motor weakness Skin: normal pigmentation, warm/dry Objective ankle dressing c&d Robert Lynn DO Aug 07, 2018 13:52
--- NOTE | 2018-08-07 14:23 | Pulmonology Progress Note ---
Assessment/Plan Problems: (1) Cellulitis (2) Non-healing ulcer of ankle (3) Diabetes mellitus (4) HTN (hypertension) Assessment/Plan wound care iv abx sliding scale xray's reviewed, no osteo dvt prophylaxis vascular studies noted. Subjective ROS Limited/Unobtainable: No Interval Events: improving Allergies: Coded Allergies: No Known Allergies (Unverified , 08/05/18) Objective Last 24 Hour Vital Signs Date Time Temp Pulse Resp B/P (MAP) Pulse Ox O2 Delivery O2 Flow Rate FiO2 08/07/18 12:00 98.5 101 18 152/98 (116) 95 98.5 08/07/18 08:30 Room Air 08/07/18 08:09 91 16 Room Air 08/07/18 08:00 97.6 105 19 153/113 (126) 96 97.6 08/07/18 04:46 97.8 96 18 148/96 (113) 97 97.8 08/07/18 01:51 98.0 08/07/18 01:21 98.0 08/07/18 00:00 98.2 85 18 152/96 (114) 99 98.2 08/06/18 21:00 Room Air 08/06/18 20:05 82 18 Room Air 08/06/18 20:00 98.0 69 18 147/90 (109) 97 98.0 08/06/18 16:00 92.4 83 18 159/76 (103) 98 92.4 Intake and Output 08/06/18 08/07/18 19:00 07:00 Intake Total 1090 ml Balance 1090 ml Intake Oral 240 ml Other 850 ml # Voids 7 General Appearance: WD/WN HEENT: normocephalic, atraumatic Respiratory/Chest: chest wall non-tender, lungs clear Cardiovascular: normal peripheral pulses, normal rate Abdomen: normal bowel sounds, soft, non tender Genitourinary: normal external genitalia Extremities: no cyanosis Skin: no rash 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 Microbiology Date/Time Source Procedure Growth Status 08/05/18 14:20 Blood Blood Culture - Preliminary NO GROWTH AFTER 24 HOURS Resulted 08/05/18 14:00 Blood Blood Culture - Preliminary NO GROWTH AFTER 24 HOURS Resulted 08/05/18 14:00 Ankle Right Gram Stain - Final Resulted 08/05/18 14:00 Wound Culture - Preliminary Gram Negative Bacillus 1 YEAST Resulted Laboratory Tests 08/06/18 17:00: Urine Color Pale yellow, Urine Appearance Clear, Urine pH 6, Urine Specific [place] 1.010, Urine Protein Negative, Urine Glucose (UA) 3+H, Urine Ketones Negative, Urine Blood Negative, Urine Nitrite Negative, Urine Bilirubin Negative , Urine Urobilinogen Normal, Urine Leukocyte Esterase Negative, Urine RBC 0, Urine WBC 0, Urine Squamous Epithelial Cells None, Urine Bacteria None, Urine Eosinophils None seen, Urine Random Creatinine [Pending], Urine Random Microalbumin [Pending], Urine Random Sodium 97, Urine Creatinine 31.5, Urine Microalbumin/Creatinine Ratio [Pending], Urine Potassium Timed 25 08/07/18 05:10: White Blood Count 8.0, Red Blood Count 5.37, Hemoglobin 16.1, Hematocrit 47.8, Mean Corpuscular Volume 89, Mean Corpuscular Hemoglobin 30.0, Mean Corpuscular Hemoglobin Concent 33.7, Red Cell Distribution Width 13.2, Platelet Count 240, Mean Platelet Volume 5.7L, Neutrophils (%) (Auto) 57.7, Lymphocytes (%) (Auto) 31.0, Monocytes (%) (Auto) 9.0, Eosinophils (%) (Auto) 1.9, Basophils (%) (Auto ) 0.4, Erythrocyte Sedimentation Rate 36H, Sodium Level 132L, Potassium Level 4.4, Chloride Level 93L, Carbon Dioxide Level 33H, Anion Gap 6, Blood Urea Nitrogen 15, Creatinine 1.1, Estimat Glomerular Filtration Rate > 60, Glucose Level 192H, Calcium Level 9.7, Phosphorus Level 4.4, Magnesium Level 2.2, Total Bilirubin 0.8, Aspartate Amino Transf (AST/SGOT) 23, Alanine Aminotransferase ( ALT/SGPT) 36, Alkaline Phosphatase 80, C-Reactive Protein, Quantitative 2.3H, Total Protein 8.5H, Albumin 3.8, Globulin 4.7, Albumin/Globulin Ratio 0.8L Current Medications Medications (Trade) Dose Ordered Sig/Caroline Route PRN Reason Start Time Stop Time Status Last Admin Dose Admin Acetaminophen (Tylenol) 650 mg Q4H PRN ORAL T>100.5 08/05/18 17:30 09/04/18 17:29 Albuterol/ Ipratropium (Albuterol/ Ipratropium) 3 ml Q4H PRN HHN Shortness of Breath 08/05/18 17:30 08/10/18 17:29 Clonidine HCl (Catapres Tab) 0.1 mg Q6H PRN ORAL SBP>160 08/05/18 18:45 09/04/18 18:44 08/06/18 12:04 Collagenase (Santyl) 1 applic DAILY TOPIC 08/07/18 09:00 09/06/18 08:59 08/07/18 10:13 Dextrose (Dextrose 50%) 25 ml PRN IV hypoglycemia 08/05/18 17:30 09/04/18 17:29 Dextrose (Dextrose 50%) 50 ml PRN IV hypoglycemia 08/05/18 17:30 09/04/18 17:29 Heparin Sodium (Porcine) (Heparin 5000 units/ml) 5,000 units EVERY 12 HOURS SUBQ 08/05/18 21:00 09/04/18 20:59 08/06/18 21:15 Insulin Aspart (NovoLOG) BEFORE MEALS AND HS SUBQ 08/05/18 21:00 09/04/18 20:59 08/07/18 12:25 Morphine Sulfate (Morphine Sulfate) 2 mg Q4H PRN IVP Moderate Pain (Pain Scale 4-6) 08/05/18 17:30 08/12/18 17:29 08/07/18 11:47 Nitroglycerin (Ntg) 0.4 mg Q5MIN X 3 DOSES PRN SL Prn Chest Pain 08/05/18 17:30 09/04/18 17:29 Ondansetron HCl (Zofran) 4 mg Q6H PRN IVP Nausea & Vomiting 08/05/18 17:30 09/04/18 17:29 Polyethylene Glycol (Miralax) 17 gm DAILYPRN PRN ORAL Constipation 08/05/18 17:30 09/04/18 17:29 Temazepam (Restoril) 15 mg HSPRN PRN ORAL Insomnia 08/05/18 21:00 08/12/18 20:59 Stefanie Babcock MD Aug 07, 2018 14:23
--- NOTE | 2018-08-07 14:34 | Diagnostic Imaging Report ---
Indication: Bilateral leg pain Technique: Grayscale and duplex images of the bilateral lower extremity veins Comparison: none Findings: Bilaterally, grayscale duplex images demonstrate no evidence of intraluminal thrombus. Normal phasic waveforms, demonstrating normal augmentation response. No evidence of valvular insufficiency Impression: Negative for lower extremity deep venous thrombosis This agrees with the preliminary interpretation provided overnight by [facility] teleradiology service.
[2018-08-07 16:00] VITALS: BP 161/103
--- NOTE | 2018-08-07 16:55 | Podiatric Progress Note ---
Assessment/Plan Patient George Fitch is a 68 year old male who was admitted on Aug 05, 2018 at 14:20 with Assessment/Plan A/ 1) Chronic ulcer medial right ankle 2) DM 3) Pain RLE P/ 1) arterial ultz BLE - WNL 2) X-ray right ankle - no osteo 3) Wound care orders using Santyl - continue as ordered 4) ESR, CRP - not markedly elevated to indicate osteo 5) Will follow up with patient at [facility] 6) Ok to d/c from my standpoint with oral abx per ID Subjective Allergies: Coded Allergies: No Known Allergies (Unverified , 08/05/18) Subjective Patient comfortable. Family at bedside Objective Exam Last 24 Hour Vital Signs Date Time Temp Pulse Resp B/P (MAP) Pulse Ox O2 Delivery O2 Flow Rate FiO2 08/07/18 16:00 97.5 77 18 161/103 (122) 99 97.5 08/07/18 12:00 98.5 101 18 152/98 (116) 95 98.5 08/07/18 08:30 Room Air 08/07/18 08:09 91 16 Room Air 08/07/18 08:00 97.6 105 19 153/113 (126) 96 97.6 08/07/18 04:46 97.8 96 18 148/96 (113) 97 97.8 08/07/18 01:51 98.0 08/07/18 01:21 98.0 08/07/18 00:00 98.2 85 18 152/96 (114) 99 98.2 08/06/18 21:00 Room Air 08/06/18 20:05 82 18 Room Air 08/06/18 20:00 98.0 69 18 147/90 (109) 97 98.0 Laboratory Tests Test 08/06/18 17:00 08/07/18 05:10 Urine Color Pale yellow Urine Appearance Clear Urine pH 6 (4.5-8.0) Urine Specific [place] 1.010 (1.005-1.035) Urine Protein Negative (NEGATIVE) Urine Glucose (UA) 3+ (NEGATIVE) H Urine Ketones Negative (NEGATIVE) Urine Blood Negative (NEGATIVE) Urine Nitrite Negative (NEGATIVE) Urine Bilirubin Negative (NEGATIVE) Urine Urobilinogen Normal MG/DL (0.0-1.0) Urine Leukocyte Esterase Negative (NEGATIVE) Urine RBC 0 /HPF (0 - 0) Urine WBC 0 /HPF (0 - 0) Urine Squamous Epithelial Cells None /LPF (NONE/OCC) Urine Bacteria None /HPF (NONE) Urine Eosinophils None seen (NONE SEEN) Urine Random Creatinine Pending Urine Random Microalbumin Pending Urine Random Sodium 97 mmol/L (20-110) Urine Creatinine 31.5 MG/DL (30.0-125.0) Urine Microalbumin/Creatinine Ratio Pending Urine Potassium Timed 25 mmol/L (12-62) White Blood Count 8.0 K/UL (4.8-10.8) Red Blood Count 5.37 M/UL (4.70-6.10) Hemoglobin 16.1 G/DL (14.2-18.0) Hematocrit 47.8 % (42.0-52.0) Mean Corpuscular Volume 89 FL (80-99) Mean Corpuscular Hemoglobin 30.0 PG (27.0-31.0) Mean Corpuscular Hemoglobin Concent 33.7 G/DL (32.0-36.0) Red Cell Distribution Width 13.2 % (11.6-14.8) Platelet Count 240 K/UL (150-450) Mean Platelet Volume 5.7 FL (6.5-10.1) L Neutrophils (%) (Auto) 57.7 % (45.0-75.0) Lymphocytes (%) (Auto) 31.0 % (20.0-45.0) Monocytes (%) (Auto) 9.0 % (1.0-10.0) Eosinophils (%) (Auto) 1.9 % (0.0-3.0) Basophils (%) (Auto) 0.4 % (0.0-2.0) Erythrocyte Sedimentation Rate 36 MM/HR (0-20) H Sodium Level 132 MMOL/L (136-145) L Potassium Level 4.4 MMOL/L (3.5-5.1) Chloride Level 93 MMOL/L (98-107) L Carbon Dioxide Level 33 MMOL/L (21-32) H Anion Gap 6 mmol/L (5-15) Blood Urea Nitrogen 15 mg/dL (7-18) Creatinine 1.1 MG/DL (0.55-1.30) Estimat Glomerular Filtration Rate > 60 mL/min (>60) Glucose Level 192 MG/DL (74-106) H Calcium Level 9.7 MG/DL (8.5-10.1) Phosphorus Level 4.4 MG/DL (2.5-4.9) Magnesium Level 2.2 MG/DL (1.8-2.4) Total Bilirubin 0.8 MG/DL (0.2-1.0) Aspartate Amino Transf (AST/SGOT) 23 U/L (15-37) Alanine Aminotransferase (ALT/SGPT) 36 U/L (12-78) Alkaline Phosphatase 80 U/L (46-116) C-Reactive Protein, Quantitative 2.3 mg/dL (0.00-0.90) H Total Protein 8.5 G/DL (6.4-8.2) H Albumin 3.8 G/DL (3.4-5.0) Globulin 4.7 g/dL Albumin/Globulin Ratio 0.8 (1.0-2.7) L Microbiology Date/Time Source Procedure Growth Status 08/05/18 14:20 Blood Blood Culture - Preliminary NO GROWTH AFTER 24 HOURS Resulted 08/05/18 14:00 Ankle Right Gram Stain - Final Resulted 08/05/18 14:00 Wound Culture - Preliminary Gram Negative Bacillus 1 YEAST Resulted Dermatological Wound Assessment : Exudate Amount: Scant Dermatological Narrative exam unchanged Jack Mckeon DPM Aug 07, 2018 16:55
[2018-08-07 20:00] VITALS: BP 163/110
[2018-08-08] VITALS (7 sets, daily range): BP systolic 137–166; BP diastolic 77–100
[2018-08-08] MEDS: NovoLOG Insulin Flexpen SUBQ SCH ×4 (06:21→20:39)
[2018-08-08 07:03] LABS: BASOPHILS % (AUTO) 0.7 % (0.0-2.0); EOSINOPHILS % (AUTO) 2.4 % (0.0-3.0); HEMATOCRIT 46.5 % (42.0-52.0); HEMOGLOBIN 15.9 G/DL (14.2-18.0); LYMPHOCYTES % (AUTO) 26.6 % (20.0-45.0); MEAN CORPUSCULAR VOLUME 88 FL (80-99); MONOCYTES % (AUTO) 9.7 % (1.0-10.0); NEUTROPHILS % (AUTO) 60.6 % (45.0-75.0); PLATELET COUNT 217 K/UL (150-450); RED BLOOD COUNT 5.25 M/UL (4.70-6.10); RED CELL DISTRIBUTION WIDTH 12.9 % (11.6-14.8); WHITE BLOOD COUNT 6.1 K/UL (4.8-10.8)
[2018-08-08 07:31] LABS: ANION GAP 7 mmol/L (5-15); BLOOD UREA NITROGEN 14 mg/dL (7-18); CALCIUM 9.2 MG/DL (8.5-10.1); CARBON DIOXIDE 30 MMOL/L (21-32); CHLORIDE 95 MMOL/L (98-107); CREATININE 1.1 MG/DL (0.55-1.30); POTASSIUM 4.6 MMOL/L (3.5-5.1); SODIUM 131 MMOL/L (136-145)
[2018-08-08] MEDS: Heparin 5000 units/ml inj SUBQ SCH ×2 (08:42→20:40)
--- NOTE | 2018-08-08 11:27 | Infectious Diseases Prog Note ---
Assessment/Plan Assessment/Plan Assessment: Right ankle ulcer No Sign of active infection Wound Cx: Serratia and anais ( colonizer ) 08/06/18 - US - Negative for evidence of lower extremity arterial insufficiency Afebrile Nl wbc DM HTN P: Monitor pt off of AB Rx 08/06 SP Vancomycin and Cefepime. x 1 f/u Podiatry recommendations f/u Blood culture Monitor CBC and Temps Subjective Allergies: Coded Allergies: No Known Allergies (Unverified , 08/05/18) Subjective Comfortable Objective Vital Signs Last 24 Hour Vital Signs Date Time Temp Pulse Resp B/P (MAP) Pulse Ox O2 Delivery O2 Flow Rate FiO2 08/08/18 09:00 Room Air 08/08/18 08:00 98.2 95 20 146/79 (101) 97 98.2 08/08/18 04:00 97.3 85 18 148/95 (112) 97 97.3 08/08/18 00:00 97.4 99 18 137/88 (104) 96 97.4 08/07/18 21:00 Room Air 08/07/18 20:42 163/110 08/07/18 20:00 98.1 89 18 163/110 (127) 97 98.1 08/07/18 19:02 84 18 Room Air 08/07/18 16:00 97.5 77 18 161/103 (122) 99 97.5 08/07/18 12:00 98.5 101 18 152/98 (116) 95 98.5 Height (Feet): 5 Height (Inches): 8.00 Weight (Pounds): 198 HEENT: anicteric Respiratory/Chest: no accessory muscle use Cardiovascular: regular rhythm Abdomen: no organomegaly Microbiology Date/Time Source Procedure Growth Status 08/05/18 14:20 Blood Blood Culture - Preliminary NO GROWTH AFTER 48 HOURS Resulted 08/05/18 14:00 Blood Blood Culture - Preliminary NO GROWTH AFTER 48 HOURS Resulted 08/05/18 14:00 Ankle Right Gram Stain - Final Complete 08/05/18 14:00 Wound Culture - Final Serratia Marcescens Anais Tropicalis Complete Laboratory Tests Test 08/08/18 06:40 White Blood Count 6.1 K/UL (4.8-10.8) Red Blood Count 5.25 M/UL (4.70-6.10) Hemoglobin 15.9 G/DL (14.2-18.0) Hematocrit 46.5 % (42.0-52.0) Mean Corpuscular Volume 88 FL (80-99) Mean Corpuscular Hemoglobin 30.2 PG (27.0-31.0) Mean Corpuscular Hemoglobin Concent 34.2 G/DL (32.0-36.0) Red Cell Distribution Width 12.9 % (11.6-14.8) Platelet Count 217 K/UL (150-450) Mean Platelet Volume 5.9 FL (6.5-10.1) L Neutrophils (%) (Auto) 60.6 % (45.0-75.0) Lymphocytes (%) (Auto) 26.6 % (20.0-45.0) Monocytes (%) (Auto) 9.7 % (1.0-10.0) Eosinophils (%) (Auto) 2.4 % (0.0-3.0) Basophils (%) (Auto) 0.7 % (0.0-2.0) Sodium Level 131 MMOL/L (136-145) L Potassium Level 4.6 MMOL/L (3.5-5.1) Chloride Level 95 MMOL/L (98-107) L Carbon Dioxide Level 30 MMOL/L (21-32) Anion Gap 7 mmol/L (5-15) Blood Urea Nitrogen 14 mg/dL (7-18) Creatinine 1.1 MG/DL (0.55-1.30) Estimat Glomerular Filtration Rate > 60 mL/min (>60) Glucose Level 253 MG/DL (74-106) H Calcium Level 9.2 MG/DL (8.5-10.1) Current Medications Medications (Trade) Dose Ordered Sig/Caroline Route PRN Reason Start Time Stop Time Status Last Admin Dose Admin Acetaminophen (Tylenol) 650 mg Q4H PRN ORAL T>100.5 08/05/18 17:30 09/04/18 17:29 Albuterol/ Ipratropium (Albuterol/ Ipratropium) 3 ml Q4H PRN HHN Shortness of Breath 08/05/18 17:30 08/10/18 17:29 Clonidine HCl (Catapres Tab) 0.1 mg Q6H PRN ORAL SBP>160 08/05/18 18:45 09/04/18 18:44 08/07/18 20:42 Collagenase (Santyl) 1 applic DAILY TOPIC 08/07/18 09:00 09/06/18 08:59 08/08/18 08:37 Dextrose (Dextrose 50%) 25 ml PRN IV hypoglycemia 08/05/18 17:30 09/04/18 17:29 Dextrose (Dextrose 50%) 50 ml PRN IV hypoglycemia 08/05/18 17:30 09/04/18 17:29 Heparin Sodium (Porcine) (Heparin 5000 units/ml) 5,000 units EVERY 12 HOURS SUBQ 08/05/18 21:00 09/04/18 20:59 08/08/18 08:42 Insulin Aspart (NovoLOG) BEFORE MEALS AND HS SUBQ 08/05/18 21:00 09/04/18 20:59 08/08/18 06:21 Morphine Sulfate (Morphine Sulfate) 2 mg Q4H PRN IVP Moderate Pain (Pain Scale 4-6) 08/05/18 17:30 08/12/18 17:29 08/07/18 11:47 Nitroglycerin (Ntg) 0.4 mg Q5MIN X 3 DOSES PRN SL Prn Chest Pain 08/05/18 17:30 09/04/18 17:29 Ondansetron HCl (Zofran) 4 mg Q6H PRN IVP Nausea & Vomiting 08/05/18 17:30 09/04/18 17:29 Polyethylene Glycol (Miralax) 17 gm DAILYPRN PRN ORAL Constipation 08/05/18 17:30 09/04/18 17:29 Temazepam (Restoril) 15 mg HSPRN PRN ORAL Insomnia 08/05/18 21:00 08/12/18 20:59 Dominick Adan MD Aug 08, 2018 11:27
--- NOTE | 2018-08-08 12:52 | Pulmonology Progress Note ---
Assessment/Plan Problems: (1) Cellulitis (2) Non-healing ulcer of ankle (3) Diabetes mellitus (4) HTN (hypertension) Assessment/Plan improving wound care iv abx as per ID sliding scale xray's reviewed, no osteo dvt prophylaxis vascular studies noted. dc planning soon Subjective ROS Limited/Unobtainable: No Constitutional: Reports: no symptoms HEENT: Repors: no symptoms Respiratory: Reports: no symptoms Allergies: Coded Allergies: No Known Allergies (Unverified , 08/05/18) Objective Last 24 Hour Vital Signs Date Time Temp Pulse Resp B/P (MAP) Pulse Ox O2 Delivery O2 Flow Rate FiO2 08/08/18 12:00 98.2 77 25 138/77 (97) 96 98.2 08/08/18 09:00 Room Air 08/08/18 08:00 98.2 95 20 146/79 (101) 97 98.2 08/08/18 04:00 97.3 85 18 148/95 (112) 97 97.3 08/08/18 00:00 97.4 99 18 137/88 (104) 96 97.4 08/07/18 21:00 Room Air 08/07/18 20:42 163/110 08/07/18 20:00 98.1 89 18 163/110 (127) 97 98.1 08/07/18 19:02 84 18 Room Air 08/07/18 16:00 97.5 77 18 161/103 (122) 99 97.5 Intake and Output 08/07/18 08/08/18 19:00 07:00 Intake Total 1800 ml 250 ml Balance 1800 ml 250 ml Intake Oral 250 ml Other 1800 ml # Voids 4 3 General Appearance: WD/WN HEENT: normocephalic, atraumatic Respiratory/Chest: chest wall non-tender, lungs clear Cardiovascular: normal peripheral pulses, normal rate Abdomen: normal bowel sounds, soft, non tender Genitourinary: normal external genitalia Extremities: no cyanosis 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 Microbiology Date/Time Source Procedure Growth Status 08/05/18 14:20 Blood Blood Culture - Preliminary NO GROWTH AFTER 48 HOURS Resulted 08/05/18 14:00 Blood Blood Culture - Preliminary NO GROWTH AFTER 48 HOURS Resulted 08/05/18 14:00 Ankle Right Gram Stain - Final Complete 08/05/18 14:00 Wound Culture - Final Serratia Marcescens Anais Tropicalis Complete Laboratory Tests 08/08/18 06:40: White Blood Count 6.1, Red Blood Count 5.25, Hemoglobin 15.9, Hematocrit 46.5, Mean Corpuscular Volume 88, Mean Corpuscular Hemoglobin 30.2, Mean Corpuscular Hemoglobin Concent 34.2, Red Cell Distribution Width 12.9, Platelet Count 217, Mean Platelet Volume 5.9L, Neutrophils (%) (Auto) 60.6, Lymphocytes (%) (Auto) 26.6, Monocytes (%) (Auto) 9.7, Eosinophils (%) (Auto) 2.4, Basophils (%) (Auto ) 0.7, Sodium Level 131L, Potassium Level 4.6, Chloride Level 95L, Carbon Dioxide Level 30, Anion Gap 7, Blood Urea Nitrogen 14, Creatinine 1.1, Estimat Glomerular Filtration Rate > 60, Glucose Level 253H, Calcium Level 9.2 Current Medications Medications (Trade) Dose Ordered Sig/Caroline Route PRN Reason Start Time Stop Time Status Last Admin Dose Admin Acetaminophen (Tylenol) 650 mg Q4H PRN ORAL T>100.5 08/05/18 17:30 09/04/18 17:29 Albuterol/ Ipratropium (Albuterol/ Ipratropium) 3 ml Q4H PRN HHN Shortness of Breath 08/05/18 17:30 08/10/18 17:29 Clonidine HCl (Catapres Tab) 0.1 mg Q6H PRN ORAL SBP>160 08/05/18 18:45 09/04/18 18:44 08/07/18 20:42 Collagenase (Santyl) 1 applic DAILY TOPIC 08/07/18 09:00 09/06/18 08:59 08/08/18 08:37 Dextrose (Dextrose 50%) 25 ml PRN IV hypoglycemia 08/05/18 17:30 09/04/18 17:29 Dextrose (Dextrose 50%) 50 ml PRN IV hypoglycemia 08/05/18 17:30 09/04/18 17:29 Heparin Sodium (Porcine) (Heparin 5000 units/ml) 5,000 units EVERY 12 HOURS SUBQ 08/05/18 21:00 09/04/18 20:59 08/08/18 08:42 Insulin Aspart (NovoLOG) BEFORE MEALS AND HS SUBQ 08/05/18 21:00 09/04/18 20:59 08/08/18 12:02 Morphine Sulfate (Morphine Sulfate) 2 mg Q4H PRN IVP Moderate Pain (Pain Scale 4-6) 08/05/18 17:30 08/12/18 17:29 08/07/18 11:47 Nitroglycerin (Ntg) 0.4 mg Q5MIN X 3 DOSES PRN SL Prn Chest Pain 08/05/18 17:30 09/04/18 17:29 Ondansetron HCl (Zofran) 4 mg Q6H PRN IVP Nausea & Vomiting 08/05/18 17:30 09/04/18 17:29 Polyethylene Glycol (Miralax) 17 gm DAILYPRN PRN ORAL Constipation 08/05/18 17:30 09/04/18 17:29 Temazepam (Restoril) 15 mg HSPRN PRN ORAL Insomnia 08/05/18 21:00 08/12/18 20:59 Stefanie Babcock MD Aug 08, 2018 12:52
--- NOTE | 2018-08-08 15:51 | General Progress Note ---
Assessment/Plan Problem List: (1) Diabetes mellitus ICD Codes: E11.9 - Type 2 diabetes mellitus without complications SNOMED: 56946185 (2) Cellulitis ICD Codes: L03.90 - Cellulitis, unspecified SNOMED: 611224020 (3) HTN (hypertension) ICD Codes: I10 - Essential (primary) hypertension SNOMED: 82975544 (4) Non-healing ulcer of ankle ICD Codes: L97.309 - Non-pressure chronic ulcer of unspecified ankle with unspecified severity SNOMED: 480962947 Qualifiers: Qualified Codes: L97.319 - Non-pressure chronic ulcer of right ankle with unspecified severity Status: stable, progressing Assessment/Plan wound care abx pain control cbc bmp am dc plan w hh Subjective Constitutional: Reports: weakness Allergies: Coded Allergies: No Known Allergies (Unverified , 08/05/18) All Systems: reviewed and negative except above Subjective sitting calm Objective Last 24 Hour Vital Signs Date Time Temp Pulse Resp B/P (MAP) Pulse Ox O2 Delivery O2 Flow Rate FiO2 08/08/18 12:00 98.2 77 25 138/77 (97) 96 98.2 08/08/18 09:00 Room Air 08/08/18 08:00 98.2 95 20 146/79 (101) 97 98.2 08/08/18 04:00 97.3 85 18 148/95 (112) 97 97.3 08/08/18 00:00 97.4 99 18 137/88 (104) 96 97.4 08/07/18 21:00 Room Air 08/07/18 20:42 163/110 08/07/18 20:00 98.1 89 18 163/110 (127) 97 98.1 08/07/18 19:02 84 18 Room Air 08/07/18 16:00 97.5 77 18 161/103 (122) 99 97.5 Intake and Output 08/07/18 08/08/18 19:00 07:00 Intake Total 1800 ml 250 ml Balance 1800 ml 250 ml Intake Oral 250 ml Other 1800 ml # Voids 4 3 Laboratory Tests 08/08/18 06:40: White Blood Count 6.1, Red Blood Count 5.25, Hemoglobin 15.9, Hematocrit 46.5, Mean Corpuscular Volume 88, Mean Corpuscular Hemoglobin 30.2, Mean Corpuscular Hemoglobin Concent 34.2, Red Cell Distribution Width 12.9, Platelet Count 217, Mean Platelet Volume 5.9L, Neutrophils (%) (Auto) 60.6, Lymphocytes (%) (Auto) 26.6, Monocytes (%) (Auto) 9.7, Eosinophils (%) (Auto) 2.4, Basophils (%) (Auto ) 0.7, Sodium Level 131L, Potassium Level 4.6, Chloride Level 95L, Carbon Dioxide Level 30, Anion Gap 7, Blood Urea Nitrogen 14, Creatinine 1.1, Estimat Glomerular Filtration Rate > 60, Glucose Level 253H, Calcium Level 9.2 Height (Feet): 5 Height (Inches): 8.00 Weight (Pounds): 198 General Appearance: alert EENT: normal ENT inspection Neck: normal alignment Cardiovascular: normal peripheral pulses, normal rate, regular rhythm Respiratory/Chest: chest wall non-tender, lungs clear, normal breath sounds Abdomen: normal bowel sounds, non tender, soft Extremities: normal inspection Edema: no edema noted Arm (L), no edema noted Arm (R), no edema noted Leg (L), no edema noted Leg (R), no edema noted Pedal (L), no edema noted Pedal (R), no edema noted Generalized Neurologic: responsive, motor weakness Skin: normal pigmentation, warm/dry Objective ankle dressing c&d Robert Lynn DO Aug 08, 2018 15:51
[2018-08-08] MEDS ORDERED: ASPIR 8181 MG ORAL (18:16)
[2018-08-08] MEDS ORDERED: ATENOLOL100 MG ORAL (18:16)
[2018-08-08] MEDS ORDERED: GLIPIZIDE5 MG ORAL (18:16)
[2018-08-08] MEDS ORDERED: METFORMIN HCL1000 M1 ORAL (18:16)
[2018-08-08] MEDS ORDERED: RAMIPRIL5 MG ORAL (18:16)
[2018-08-08] MEDS ORDERED: HYDROCHLOROTHIA25 MG ORAL (18:16)
--- NOTE | 2018-08-08 20:29 | Cardiology Progress Note ---
Assessment/Plan Assessment/Plan The patient is seen and examined, full consult note will be dictated shortly. Objective Last 24 Hour Vital Signs Date Time Temp Pulse Resp B/P (MAP) Pulse Ox O2 Delivery O2 Flow Rate FiO2 08/08/18 16:00 98.8 108 22 153/91 (111) 95 98.8 08/08/18 12:00 98.2 77 25 138/77 (97) 96 98.2 08/08/18 09:00 Room Air 08/08/18 08:00 98.2 95 20 146/79 (101) 97 98.2 08/08/18 04:00 97.3 85 18 148/95 (112) 97 97.3 08/08/18 00:00 97.4 99 18 137/88 (104) 96 97.4 08/07/18 21:00 Room Air 08/07/18 20:42 163/110 Intake and Output 08/07/18 08/08/18 19:00 07:00 Intake Total 1800 ml 250 ml Balance 1800 ml 250 ml Intake Oral 250 ml Other 1800 ml # Voids 4 3 Laboratory Tests Test 08/08/18 06:40 White Blood Count 6.1 K/UL (4.8-10.8) Red Blood Count 5.25 M/UL (4.70-6.10) Hemoglobin 15.9 G/DL (14.2-18.0) Hematocrit 46.5 % (42.0-52.0) Mean Corpuscular Volume 88 FL (80-99) Mean Corpuscular Hemoglobin 30.2 PG (27.0-31.0) Mean Corpuscular Hemoglobin Concent 34.2 G/DL (32.0-36.0) Red Cell Distribution Width 12.9 % (11.6-14.8) Platelet Count 217 K/UL (150-450) Mean Platelet Volume 5.9 FL (6.5-10.1) L Neutrophils (%) (Auto) 60.6 % (45.0-75.0) Lymphocytes (%) (Auto) 26.6 % (20.0-45.0) Monocytes (%) (Auto) 9.7 % (1.0-10.0) Eosinophils (%) (Auto) 2.4 % (0.0-3.0) Basophils (%) (Auto) 0.7 % (0.0-2.0) Sodium Level 131 MMOL/L (136-145) L Potassium Level 4.6 MMOL/L (3.5-5.1) Chloride Level 95 MMOL/L (98-107) L Carbon Dioxide Level 30 MMOL/L (21-32) Anion Gap 7 mmol/L (5-15) Blood Urea Nitrogen 14 mg/dL (7-18) Creatinine 1.1 MG/DL (0.55-1.30) Estimat Glomerular Filtration Rate > 60 mL/min (>60) Glucose Level 253 MG/DL (74-106) H Calcium Level 9.2 MG/DL (8.5-10.1) Alex Chacon MD Aug 08, 2018 20:29
[2018-08-08] MEDS ORDERED: Eliquis 2.5mg tablet ORAL SCH (21:00)
[2018-08-08] MEDS ORDERED: Ramipril 2.5mg cap ORAL SCH (21:30)
--- NOTE | 2018-08-08 21:45 | Consultation ---
DATE OF CONSULTATION: 08/08/2018 CONSULTING PHYSICIAN: Alex Chacon M.D. REFERRING PHYSICIAN: Robert Lynn D.O. REASON FOR CONSULTATION: Management of accelerated hypertension and irregular heart rhythm. HISTORY OF PRESENT ILLNESS: The patient is a very unfortunate 68-year-old gentleman, who presented to the hospital on 08/05/2018 with complaints of ulcer to the right ankle that has been going on for the past two months. He states that the ulcer is not healing with wound care and antibiotics. He was referred to this facility. At the time of arrival to the hospital, right ankle pain was 9/10, sharp, and nonradiating. He was afebrile with a temperature 98.3 degrees Fahrenheit. At the time of arrival to the hospital, vital signs however revealed blood pressure 183/105 mmHg and pulses of 89. The patient was also noted to have irregular heart rhythm. Cardiology consultation was made at the request of Dr. Lynn to assess his condition. At the time of my evaluation, he did not have any chest pain or shortness of breath. He claims that he gets fatigue and tired with activities. PAST MEDICAL HISTORY: Hypertension, diabetes mellitus, and non-healed right ankle wound. PAST SURGICAL HISTORY: None. FAMILY HISTORY: No premature coronary artery disease or arrhythmogenic in the first-degree relatives. SOCIAL HISTORY: Denies any tobacco, alcohol, or illicit drug use. LIST OF MEDICATIONS: Including aspirin 81 mg p.o. daily, atenolol 100 mg p.o. daily, glipizide 10 mg p.o. twice daily, hydrochlorothiazide 25 mg p.o. daily, metformin 1000 mg p.o. daily, and ramipril 10 mg p.o. daily. ALLERGIES: No known drug allergies. REVIEW OF SYSTEMS: HEENT: Denies any headache, diplopia, or blurred vision. CONSTITUTIONAL: Denies any fever, chills, night sweats, or weight loss. CARDIOVASCULAR: Denies any chest pain, shortness of breath, PND, orthopnea, or leg swelling. PULMONARY: Denies any cough, hemoptysis, or wheezing. GASTROINTESTINAL: Denies any nausea, vomiting, diarrhea, constipation, abdominal pain, or GI bleed. GENITOURINARY: Denies any hematuria, dysuria, or incontinence. NEUROLOGIC: Denies any motor dysfunction, sensory deficit, or altered speech. MUSCULOSKELETAL: Denies any complaint of myalgia or arthralgia. He has got right ankle wound, which has not been healed for the past two months. PHYSICAL EXAMINATION: VITAL SIGNS: Blood pressure was 183/105, respirations 18, pulse of 89, O2 saturation 98% on room air, and temperature 98.3 degrees Fahrenheit. GENERAL: The patient is a very unfortunate 68-year-old gentleman, in no apparent respiratory distress. Alert and oriented x4. HEENT: Atraumatic and normocephalic. ENT, pupils are equal, round, and reactive to light and accommodation. Extraocular muscles intact. NECK: JVP less than 5 cm. No carotid bruit. Carotid upstrokes 2+ bilaterally. CARDIOVASCULAR: Normal S1 and S2. Irregularly irregular rhythm. There is no murmurs, gallops, or rubs. PMI is at fourth intercostal space in the midclavicular line. LUNGS: Clear to auscultation bilaterally. ABDOMEN: Soft, nontender, and nondistended. No hepatosplenomegaly. Positive bowel sounds. EXTREMITIES: There is right ankle ulceration 3 x 3 with discharge. Otherwise, no edema, clubbing, or cyanosis. LABORATORY FINDINGS: Sodium was 132, potassium 4.7, chloride 95, bicarbonate 29, BUN of 18, creatinine 1.2, glucose 275, and calcium is 8.9. WBC 6.9, hemoglobin 16.1, hematocrit 48.6, and platelet count is 252,000. Venous duplex in the lower extremity showed negative for lower extremity DVT. Arterial duplex scan of bilateral lower extremities showed negative for evidence of lower extremity arterial insufficiency. A 12-lead electrocardiogram is not available. ASSESSMENT AND PLAN: The patient is a very unfortunate 68-year-old gentleman, seen in Cardiology consultation at the request of Dr. Lynn. 1. Accelerated hypertension. The patient will be continued his current blood pressure, which includes ramipril, atenolol, and hydrochlorothiazide. The goal of blood pressure of this patient is less than 130/80 mmHg. 2. Irregular heart rhythm, stat 12-lead electrocardiogram to rule out the atrial fibrillation in view of uncontrolled hypertension. 3. Non-healed right ankle ulcer with no evidence of arterial insufficiency or peripheral arterial disease. 4. History of diabetes mellitus. The patient requires to be on combination of aspirin and statins. I would like to thank, Dr. Lynn, for allowing me to participate in the care of this patient. Alex Chacon M.D. DR: TIFFANY JOB#: [id number] CC:
[2018-08-08] MEDS ORDERED: Nitroglycerin Subl 0.4mg tab SL PRN (23:00)
[2018-08-09] VITALS: BP_SYST 137; BP_SYST 141; BP_DIAS 100; BP_DIAS 90
[2018-08-09] MEDS ORDERED: Morphine Sulfate 2mg/ml Inj IVP PRN (01:30)
[2018-08-09] MEDS ORDERED: Albuterol/Ipratropium 3ml neb HHN PRN (01:30)
[2018-08-09 04:00] VITALS: BP 141/80
[2018-08-09] MEDS: NovoLOG Insulin Flexpen SUBQ SCH ×2 (06:28→11:43)
[2018-08-09 07:50] LABS: BASOPHILS % (AUTO) 0.4 % (0.0-2.0); HEMATOCRIT 47.9 % (42.0-52.0); HEMOGLOBIN 15.8 G/DL (14.2-18.0); LYMPHOCYTES % (AUTO) 27.3 % (20.0-45.0); MEAN CORPUSCULAR VOLUME 89 FL (80-99); MONOCYTES % (AUTO) 9.5 % (1.0-10.0); NEUTROPHILS % (AUTO) 60.8 % (45.0-75.0); PLATELET COUNT 219 K/UL (150-450); RED CELL DISTRIBUTION WIDTH 13.2 % (11.6-14.8)
[2018-08-09 08:00] VITALS: BP 147/96
[2018-08-09 08:15] LABS: ALANINE AMINOTRANSFERASE 60 U/L (12-78); ALBUMIN 3.6 G/DL (3.4-5.0); ALBUMIN/GLOBULIN RATIO 0.8 (1.0-2.7); ALKALINE PHOSPHATASE 76 U/L (46-116); ANION GAP 9 mmol/L (5-15); ASPARTATE AMINO TRANSFERASE 43 U/L (15-37); BLOOD UREA NITROGEN 16 mg/dL (7-18); CALCIUM 9.7 MG/DL (8.5-10.1); CARBON DIOXIDE 29 MMOL/L (21-32); CHLORIDE 94 MMOL/L (98-107); PHOSPHORUS 4.2 MG/DL (2.5-4.9); POTASSIUM 4.5 MMOL/L (3.5-5.1); SODIUM 132 MMOL/L (136-145)
[2018-08-09] MEDS ORDERED: Metoprolol 5mg/5ml Inj IVP SCH (08:45)
[2018-08-09] MEDS ORDERED: Eliquis 2.5mg tablet ORAL SCH (09:00)
[2018-08-09] MEDS ORDERED: Ramipril 2.5mg cap ORAL SCH (09:00)
[2018-08-09] MEDS ORDERED: Metoprolol Tartrate 50mg tab ORAL SCH ×2 (09:00→12:55)
[2018-08-09] MEDS ORDERED: Metoprolol 5mg/5ml Inj IVP ONE ×2 (09:00→10:00)
[2018-08-09] MEDS ORDERED: Metoprolol 5mg/5ml Inj IVP PRN (09:45)
--- NOTE | 2018-08-09 10:42 | General Progress Note ---
Assessment/Plan Problem List: (1) Diabetes mellitus ICD Codes: E11.9 - Type 2 diabetes mellitus without complications SNOMED: 63122993 (2) Cellulitis ICD Codes: L03.90 - Cellulitis, unspecified SNOMED: 579283993 (3) HTN (hypertension) ICD Codes: I10 - Essential (primary) hypertension SNOMED: 68512157 (4) Non-healing ulcer of ankle ICD Codes: L97.309 - Non-pressure chronic ulcer of unspecified ankle with unspecified severity SNOMED: 545859302 Qualifiers: Qualified Codes: L97.319 - Non-pressure chronic ulcer of right ankle with unspecified severity Assessment/Plan wound care abx pain control dc w hh if clear Subjective Constitutional: Reports: weakness Allergies: Coded Allergies: No Known Allergies (Unverified , 08/05/18) All Systems: reviewed and negative except above Subjective sitting calm Objective Last 24 Hour Vital Signs Date Time Temp Pulse Resp B/P (MAP) Pulse Ox O2 Delivery O2 Flow Rate FiO2 08/09/18 09:51 117 147/96 08/09/18 09:19 117 147/96 08/09/18 09:00 Room Air 08/09/18 08:52 117 147/96 08/09/18 08:52 147/96 08/09/18 08:28 117 147/96 08/09/18 08:00 97.5 117 20 147/96 (113) 97 97.5 08/09/18 08:00 141 08/09/18 04:00 115 08/09/18 04:00 97.8 115 20 141/80 (100) 98 97.8 08/09/18 00:00 97.0 120 20 137/90 (106) 98 97.0 08/09/18 00:00 101 08/08/18 22:20 97.3 19 141/100 (114) 98 97.3 08/08/18 22:15 115 08/08/18 21:26 166/93 08/08/18 21:26 115 166/96 08/08/18 21:00 Room Air 08/08/18 20:34 111 18 Room Air 08/08/18 20:00 98.2 115 19 166/93 (117) 98 98.2 08/08/18 16:00 98.8 108 22 153/91 (111) 95 98.8 08/08/18 12:00 98.2 77 25 138/77 (97) 96 98.2 Intake and Output 08/08/18 08/09/18 19:00 07:00 Intake Total 960 ml Balance 960 ml Intake Oral 960 ml # Voids 2 1 Laboratory Tests 08/09/18 05:45: White Blood Count 7.0, Red Blood Count 5.40, Hemoglobin 15.8, Hematocrit 47.9, Mean Corpuscular Volume 89, Mean Corpuscular Hemoglobin 29.3, Mean Corpuscular Hemoglobin Concent 33.0, Red Cell Distribution Width 13.2, Platelet Count 219, Mean Platelet Volume 5.6L, Neutrophils (%) (Auto) 60.8, Lymphocytes (%) (Auto) 27.3, Monocytes (%) (Auto) 9.5, Eosinophils (%) (Auto) 2.0, Basophils (%) (Auto ) 0.4, Sodium Level 132L, Potassium Level 4.5, Chloride Level 94L, Carbon Dioxide Level 29, Anion Gap 9, Blood Urea Nitrogen 16, Creatinine 1.0, Estimat Glomerular Filtration Rate > 60, Glucose Level 182H, Calcium Level 9.7, Phosphorus Level 4.2, Magnesium Level 2.1, Total Bilirubin 1.0, Aspartate Amino Transf (AST/SGOT) 43H, Alanine Aminotransferase (ALT/SGPT) 60, Alkaline Phosphatase 76, Troponin I 0.000, Total Protein 8.2, Albumin 3.6, Globulin 4.6, Albumin/Globulin Ratio 0.8L Height (Feet): 5 Height (Inches): 8.00 Weight (Pounds): 198 General Appearance: alert EENT: normal ENT inspection Neck: normal alignment Cardiovascular: normal peripheral pulses, normal rate, regular rhythm Respiratory/Chest: chest wall non-tender, lungs clear, normal breath sounds Abdomen: normal bowel sounds, non tender, soft Extremities: normal inspection Edema: no edema noted Arm (L), no edema noted Arm (R), no edema noted Leg (L), no edema noted Leg (R), no edema noted Pedal (L), no edema noted Pedal (R), no edema noted Generalized Neurologic: responsive, motor weakness Skin: normal pigmentation, warm/dry Objective ankle dressing c&d Robert Lynn DO Aug 09, 2018 10:41
--- NOTE | 2018-08-09 12:48 | Pulmonology Progress Note ---
Assessment/Plan Problems: (1) Rapid atrial fibrillation (2) Cellulitis (3) Non-healing ulcer of ankle (4) Diabetes mellitus (5) HTN (hypertension) Assessment/Plan improving wound care iv abx as per ID sliding scale xray's reviewed, no osteo dvt prophylaxis vascular studies noted. dc planning soon Subjective ROS Limited/Unobtainable: No Constitutional: Reports: no symptoms HEENT: Repors: no symptoms Respiratory: Reports: no symptoms Allergies: Coded Allergies: No Known Allergies (Unverified , 08/05/18) Objective Last 24 Hour Vital Signs Date Time Temp Pulse Resp B/P (MAP) Pulse Ox O2 Delivery O2 Flow Rate FiO2 08/09/18 09:51 117 147/96 08/09/18 09:19 117 147/96 08/09/18 09:00 Room Air 08/09/18 08:52 117 147/96 08/09/18 08:52 147/96 08/09/18 08:28 117 147/96 08/09/18 08:00 97.5 117 20 147/96 (113) 97 97.5 08/09/18 08:00 141 08/09/18 04:00 115 08/09/18 04:00 97.8 115 20 141/80 (100) 98 97.8 08/09/18 00:00 97.0 120 20 137/90 (106) 98 97.0 08/09/18 00:00 101 08/08/18 22:20 97.3 19 141/100 (114) 98 97.3 08/08/18 22:15 115 08/08/18 21:26 166/93 08/08/18 21:26 115 166/96 08/08/18 21:00 Room Air 08/08/18 20:34 111 18 Room Air 08/08/18 20:00 98.2 115 19 166/93 (117) 98 98.2 08/08/18 16:00 98.8 108 22 153/91 (111) 95 98.8 Intake and Output 08/08/18 08/09/18 19:00 07:00 Intake Total 960 ml Balance 960 ml Intake Oral 960 ml # Voids 2 1 Objective General Appearance: WD/WN HEENT: normocephalic, atraumatic Respiratory/Chest: chest wall non-tender, lungs clear Breasts: no masses Cardiovascular: normal peripheral pulses, tachy Abdomen: normal bowel sounds, soft, non tender Genitourinary: normal external genitalia Extremities: no clubbing Skin: no rash Neurologic/Psychiatric: machine stoppage frequency checker II-XII grossly normal Lymphatic: no neck adenopathy Laboratory Tests 08/09/18 05:45: White Blood Count 7.0, Red Blood Count 5.40, Hemoglobin 15.8, Hematocrit 47.9, Mean Corpuscular Volume 89, Mean Corpuscular Hemoglobin 29.3, Mean Corpuscular Hemoglobin Concent 33.0, Red Cell Distribution Width 13.2, Platelet Count 219, Mean Platelet Volume 5.6L, Neutrophils (%) (Auto) 60.8, Lymphocytes (%) (Auto) 27.3, Monocytes (%) (Auto) 9.5, Eosinophils (%) (Auto) 2.0, Basophils (%) (Auto ) 0.4, Sodium Level 132L, Potassium Level 4.5, Chloride Level 94L, Carbon Dioxide Level 29, Anion Gap 9, Blood Urea Nitrogen 16, Creatinine 1.0, Estimat Glomerular Filtration Rate > 60, Glucose Level 182H, Calcium Level 9.7, Phosphorus Level 4.2, Magnesium Level 2.1, Total Bilirubin 1.0, Aspartate Amino Transf (AST/SGOT) 43H, Alanine Aminotransferase (ALT/SGPT) 60, Alkaline Phosphatase 76, Troponin I 0.000, Total Protein 8.2, Albumin 3.6, Globulin 4.6, Albumin/Globulin Ratio 0.8L Current Medications Medications (Trade) Dose Ordered Sig/Caroline Route PRN Reason Start Time Stop Time Status Last Admin Dose Admin Acetaminophen (Tylenol) 650 mg Q4H PRN ORAL T>100.5 08/09/18 01:30 09/04/18 17:29 Albuterol/ Ipratropium (Albuterol/ Ipratropium) 3 ml Q4H PRN HHN Shortness of Breath 08/09/18 01:30 08/10/18 17:29 Amlodipine Besylate (Norvasc) 2.5 mg DAILY ORAL 08/09/18 09:00 09/07/18 20:59 08/09/18 08:28 Apixaban (Eliquis) 5 mg BID ORAL 08/09/18 09:00 09/07/18 20:59 08/09/18 08:28 Clonidine HCl (Catapres Tab) 0.1 mg Q6H PRN ORAL SBP>160 08/09/18 00:45 09/04/18 18:44 Collagenase (Santyl) 1 applic DAILY TOPIC 08/09/18 09:00 09/06/18 08:59 08/09/18 08:27 Dextrose (Dextrose 50%) 25 ml PRN IV hypoglycemia 08/08/18 23:00 09/04/18 17:29 Dextrose (Dextrose 50%) 50 ml PRN IV hypoglycemia 08/08/18 23:00 09/04/18 17:29 Insulin Aspart (NovoLOG) BEFORE MEALS AND HS SUBQ 08/09/18 06:30 09/04/18 20:59 08/09/18 11:43 Metoprolol Tartrate (Lopressor) 100 mg Q12HR ORAL 08/09/18 12:42 09/08/18 12:41 Morphine Sulfate (Morphine Sulfate) 2 mg Q4H PRN IVP Moderate Pain (Pain Scale 4-6) 08/09/18 01:30 08/12/18 17:29 Nitroglycerin (Ntg) 0.4 mg Q5MIN X 3 DOSES PRN SL Prn Chest Pain 08/08/18 23:00 09/04/18 17:29 Ondansetron HCl (Zofran) 4 mg Q6H PRN IVP Nausea & Vomiting 08/08/18 23:30 09/04/18 17:29 Polyethylene Glycol (Miralax) 17 gm DAILYPRN PRN ORAL Constipation 08/09/18 17:30 09/04/18 17:29 Ramipril (Altace) 5 mg Q12HR ORAL 08/09/18 09:00 09/07/18 21:29 08/09/18 08:52 Temazepam (Restoril) 15 mg HSPRN PRN ORAL Insomnia 08/09/18 21:00 08/12/18 20:59 Stefanie Babcock MD Aug 09, 2018 12:48
[2018-08-09 13:11] VITALS: BP 136/97
--- NOTE | 2018-08-09 16:29 | Cardiology Progress Note ---
Assessment/Plan Assessment/Plan 1. Atrial fibrillation with controlled ventricular response, increase metoprolol 100mg bid. Feliciano was started in view of high CHADS-VASC score of 5. Advised him to follow with me in the office. 2. Accelerated HTN, continue amlodipine, Ramipril and metoprolol. 3. Hx of CVA in the past, possibly embolic in view of AFib, non-compliant with doctor's appointment. 4. DM, with foot ulcer. Subjective Subjective Transferred to [facility] for new onset atrial fibrillation and RVR. Currently after metoprolol use atrial fibrillation is better controlled at 90. Objective Last 24 Hour Vital Signs Date Time Temp Pulse Resp B/P (MAP) Pulse Ox O2 Delivery O2 Flow Rate FiO2 08/09/18 13:11 90 136/97 08/09/18 12:42 117 147/96 08/09/18 09:51 117 147/96 08/09/18 09:19 117 147/96 08/09/18 09:00 Room Air 08/09/18 08:52 117 147/96 08/09/18 08:52 147/96 08/09/18 08:28 117 147/96 08/09/18 08:00 97.5 117 20 147/96 (113) 97 97.5 08/09/18 08:00 141 08/09/18 04:00 115 08/09/18 04:00 97.8 115 20 141/80 (100) 98 97.8 08/09/18 00:00 97.0 120 20 137/90 (106) 98 97.0 08/09/18 00:00 101 08/08/18 22:20 97.3 19 141/100 (114) 98 97.3 08/08/18 22:15 115 08/08/18 21:26 166/93 08/08/18 21:26 115 166/96 08/08/18 21:00 Room Air 08/08/18 20:34 111 18 Room Air 08/08/18 20:00 98.2 115 19 166/93 (117) 98 98.2 Intake and Output 08/08/18 08/09/18 19:00 07:00 Intake Total 960 ml Balance 960 ml Intake Oral 960 ml # Voids 2 1 Laboratory Tests Test 08/09/18 05:45 White Blood Count 7.0 K/UL (4.8-10.8) Red Blood Count 5.40 M/UL (4.70-6.10) Hemoglobin 15.8 G/DL (14.2-18.0) Hematocrit 47.9 % (42.0-52.0) Mean Corpuscular Volume 89 FL (80-99) Mean Corpuscular Hemoglobin 29.3 PG (27.0-31.0) Mean Corpuscular Hemoglobin Concent 33.0 G/DL (32.0-36.0) Red Cell Distribution Width 13.2 % (11.6-14.8) Platelet Count 219 K/UL (150-450) Mean Platelet Volume 5.6 FL (6.5-10.1) L Neutrophils (%) (Auto) 60.8 % (45.0-75.0) Lymphocytes (%) (Auto) 27.3 % (20.0-45.0) Monocytes (%) (Auto) 9.5 % (1.0-10.0) Eosinophils (%) (Auto) 2.0 % (0.0-3.0) Basophils (%) (Auto) 0.4 % (0.0-2.0) Sodium Level 132 MMOL/L (136-145) L Potassium Level 4.5 MMOL/L (3.5-5.1) Chloride Level 94 MMOL/L (98-107) L Carbon Dioxide Level 29 MMOL/L (21-32) Anion Gap 9 mmol/L (5-15) Blood Urea Nitrogen 16 mg/dL (7-18) Creatinine 1.0 MG/DL (0.55-1.30) Estimat Glomerular Filtration Rate > 60 mL/min (>60) Glucose Level 182 MG/DL (74-106) H Calcium Level 9.7 MG/DL (8.5-10.1) Phosphorus Level 4.2 MG/DL (2.5-4.9) Magnesium Level 2.1 MG/DL (1.8-2.4) Total Bilirubin 1.0 MG/DL (0.2-1.0) Aspartate Amino Transf (AST/SGOT) 43 U/L (15-37) H Alanine Aminotransferase (ALT/SGPT) 60 U/L (12-78) Alkaline Phosphatase 76 U/L (46-116) Troponin I 0.000 ng/mL (0.000-0.056) Total Protein 8.2 G/DL (6.4-8.2) Albumin 3.6 G/DL (3.4-5.0) Globulin 4.6 g/dL Albumin/Globulin Ratio 0.8 (1.0-2.7) L Objective HEENT: Atraumatic and normocephalic. ENT, pupils are equal, round, and reactive to light and accommodation. Extraocular muscles intact. NECK: JVP less than 5 cm. No carotid bruit. Carotid upstrokes 2+ bilaterally. CARDIOVASCULAR: Normal S1 and S2. Irregularly irregular rhythm. There is no murmurs, gallops, or rubs. PMI is at fourth intercostal space in the midclavicular line. LUNGS: Clear to auscultation bilaterally. ABDOMEN: Soft, nontender, and nondistended. No hepatosplenomegaly. Positive bowel sounds. EXTREMITIES: There is right ankle ulceration 3 x 3 with discharge. Otherwise, no edema, clubbing, or cyanosis. Alex Chacon MD Aug 09, 2018 16:29
[2018-08-09] MEDS ORDERED: Miralax 17gm pkt ORAL PRN (17:30)
--- NOTE | 2018-08-11 14:06 | Discharge Summary ---
Discharge Summary Discharge Summary _ DATE OF ADMISSION: 08/05/2018 DATE OF DISCHARGE: 08/09/2018 REASON FOR ADMISSION: 68 years old male with past medical history of diabetes, hypertension , presented to emergency room for evaluation. Patient reported nonhealing right ankle ulcer. Ulcer was not healing with wound care and antibiotic for 2 months. ] Patient also reported pain in the right ankle area, 9 out of 10, sharp , nonradiating. No fever, no chills. Upon evaluation, blood pressure elevated 183/105, otherwise stable vital signs. Laboratory workup revealed no leukocytosis ,stable hemoglobin and hematocrit. Initially sedimentation rate within normal limits. Glucose 275 Lactic acid 2.5 Sodium 132 Urinalysis with +2 glucose, but no evidence of UTI. Patient started on empiric antibiotic and was admitted with diagnosis of nonhealing right ankle ulcer, hypertensive urgency, diabetes CONSULTANTS: technical business analyst, Dr. Chacon pulmonary Dr. Babcock [facility] Dr. Walker wire temperer Dr. Damon [facility] COURSE: Patient admitted. X-ray of the right ankle revealed medial ankle soft tissue ulcer, no evidence of suggest osteomyelitis. Venous duplex bilateral lower extremity revealed no evidence of acute DVT. Wound care provided. Pain management was addressed. Infectious disease specialist closely followed. Arterial ultrasound lower extremities revealed no evidence of arterial insufficiency. Per ID specialist, ulcer did not show signs of infection, patient was afebrile, no leukocytosis. Blood culture were negative. Patient received antibiotics: vancomycin and cefepime 1. Infectious disease doctor recommended to keep patient off antibiotics and follow -up with wire temperer recommendations. Plant Accountant closely followed. Wound care provided as per wire temperer recommendations with [facility]. Repeated ESR and CRP ( 36 and 2.3 respectively) were not markedly elevated to indicate osteomyelitis. X-ray of right ankle ,as mentioned above ,revealed no evidence of osteomyelitis ; and arterial ultrasound bilateral lower oximetry was within normal limits. Patient to follow-up with wire temperer at [facility] as outpatient.. On telemetry floor noted atrial fibrillation with controlled ventricular response . Cardiology consult was requested. Heart rate was controlled with beta deann. Patient started on anticoagulation with Eliquis due to high CHADS-VASC score of 5 . Patient to follow-up with technical business analyst as outpatient. Blood pressure was managed with multiply antihypertensive regimen, including beta deann, calcium channel deann and NORMA inhibitor. Antihypertensive regimen was uptitrated to keep blood pressure under control. Per technical business analyst , patient has a history of CVA in the past, probably was embolic in view of the atrial fibrillation. Patient was noncompliant with doctors appointment Reinforced compliance with medication regimen and doctors appointment . Blood sugar was managed with sliding scale of insulin. Food Preparation Supervisor followed for electrolyte abnormality . Hyponatremia workup was initiated . urine studies were reviewed. According to clinical data manager , patient had isovolemic hyponatremia Renal parameters and electrolytes were closely monitored ,nephrotoxins were avoided, electrolytes corrected as needed. Patient clinically stabilized and was ready for discharge home with home health services. Outpatient follow-up with wound clinic. FINAL DIAGNOSES: Chronic nonhealing right medial ankle ulcer Hypertensive urgency History of CVA Diabetes mellitus Atrial fibrillation Pain right lower extremity DISCHARGE MEDICATIONS: List of medication was sent with the patient DISCHARGE INSTRUCTIONS: Patient was discharged home with home health services. Follow up with primary care provider in one week.follow-up with outpatient wound care clinic I have been assigned to dictate discharge summary for this account. I was not involved in the patient's management. Anu Rowe NP Aug 11, 2018 14:06
== END 2018-08-09 14:45 | disposition home health service (06) | DRG 638 ==
LOC: EDBEDREQ 14:05 → EMR 14:09 → 4E 14:20 → EDBEDREQ 16:19 → 2E 08-08 22:58
DX: E11.622 Type 2 diabetes mellitus with other skin ulcer (principal); L97.319 Non-pressure chronic ulcer of right ankle with unspecified severity; E87.1 Hypo-osmolality and hyponatremia; L03.115 Cellulitis of right lower limb; I16.0 Hypertensive urgency; I10 Essential (primary) hypertension; Z79.4 Long term (current) use of insulin; E87.5 Hyperkalemia; Z86.73 Personal history of transient ischemic attack (TIA), and cerebral infarction without residual deficits; I48.91 Unspecified atrial fibrillation; E11.40 Type 2 diabetes mellitus with diabetic neuropathy, unspecified; E11.319 Type 2 diabetes mellitus with unspecified diabetic retinopathy without macular edema; E78.5 Hyperlipidemia, unspecified
CPT/HCPCS: 36415; 80048; 80053; 81001; 82043; 82570; 82962; 83605; 83735; 84100; 84133; 84300; 84484; 85025; 85651; 86140; 87040; 87070; 87181; 87205; 89050; 93005; 93925; 93970; 94664; 96365; 96366; 99285; J1815

== ENCOUNTER 2018-08-11 09:58 | Outpatient (RCR) | payer MEDICARE, MEDICAID ==
[~2018-08-11] VITALS: Ht 170.2 cm; Wt 88.0 kg
[~2018-08-11 09:58] MED LIST: ASPIR 8181 MG ORAL; ATENOLOL100 MG ORAL; GLIPIZIDE5 MG ORAL; HYDROCHLOROTHIA25 MG ORAL; METFORMIN HCL1000 M1 ORAL; RAMIPRIL5 MG ORAL
== END 2018-08-23 | disposition home or self-care (01) ==
LOC: WCC 09:58
DX: L97.313 Non-pressure chronic ulcer of right ankle with necrosis of muscle (principal); I87.2 Venous insufficiency (chronic) (peripheral); E11.9 Type 2 diabetes mellitus without complications; I10 Essential (primary) hypertension
CPT/HCPCS: 11043; 29580

== ENCOUNTER 2018-08-25 09:19 | Outpatient (RCR) | payer MEDICARE, MEDICAID | END 2018-09-23 | disposition home or self-care (01) | LOC: WCC 09:19 | DX: L97.315 Non-pressure chronic ulcer of right ankle with muscle involvement without evidence of necrosis (principal); E11.42 Type 2 diabetes mellitus with diabetic polyneuropathy; I87.2 Venous insufficiency (chronic) (peripheral); I10 Essential (primary) hypertension | CPT/HCPCS: 11043; 29580; G0463 ==

== ENCOUNTER 2020-03-30 10:53 | Emergency (ER) | payer MEDICARE, MEDICAID ==
[~2020-03-30] VITALS: Ht 167.6 cm; Wt 81.6 kg
[2020-03-30 10:55] VITALS: BP 180/107
[2020-03-30] MEDS ORDERED: Morphine Sulfate 4mg/ml Inj (IV USE ONLY) IVP ONE (11:15)
[2020-03-30] MEDS ORDERED: Aspirin Baby 81mg ORAL ONE (11:15)
[2020-03-30] MEDS ORDERED: Metoprolol Tartrate 5mg/5ml Inj IVP ONE (11:15)
[2020-03-30] MEDS ORDERED: Nitroglycerin Subl 0.4mg tab SL ONE (11:21)
[2020-03-30] MEDS ORDERED: Nitroglycerin Subl 0.4mg tab SL PRN (11:30)
--- NOTE | 2020-03-30 11:33 | Emergency Room Report ---
History of Present Illness General Chief Complaint: Chest Pain Source: Patient Present Illness HPI Disclaimer: Please note that this report is being documented using [employer] technology. This can lead to erroneous entry secondary to incorrect interpretation by the dictating instrument. HPI: 69-year-old male history of high cholesterol, hypertension, diabetes presents for chest pain. Patient states pain started last night, middle of the chest radiating to the shoulders. He denied any nausea, vomiting, fever, cough. Does report mild shortness of breath. Patient denies any cardiac history or history of A. fib. Pain currently 8 out of 10. PMH: Hypertension, diabetes, high cholesterol PSH: Reviewed Social Hx: Patient drinks daily denies smoking or illicit drug use Allergies: Coded Allergies: No Known Allergies (Unverified , 08/05/18) COVID-19 Screening Contact w/high risk pt: No Recent Travel to affected area: No Experienced COVID-19 symptoms?: Yes COVID-19 symptoms experienced: Shortness of Breath Nursing Documentation-PMH Past Medical History: No History, Except For Hx Cardiac Problems: Yes - high cholesterol Hx Hypertension: Yes Hx Diabetes: Yes Hx Cancer: No Hx Gastrointestinal Problems: No Hx Neurological Problems: No Review of Systems All Other Systems: negative except mentioned in HPI Physical Exam Vital Signs Date Time Temp Pulse Resp B/P (MAP) Pulse Ox O2 Delivery O2 Flow Rate FiO2 03/30/20 10:38 98.1 134 20 180/107 (131) 96 Room Air Sp02 EP Interpretation: reviewed, normal General Appearance: well appearing, no apparent distress Head: normocephalic, atraumatic Eyes: bilateral eye PERRL, bilateral eye EOMI ENT: hearing grossly normal, moist mucus membranes Neck: full range of motion, supple Respiratory: lungs clear, normal breath sounds, no rhonchi, no respiratory distress, no retraction, no wheezing Cardiovascular #1: normal peripheral pulses, no murmur, other - Patient tachycardic with irregularly irregular rhythm Gastrointestinal: non tender, soft, non-distended, no guarding Neurologic: alert, oriented x3, no focal defects Skin: other - Wound noted to left lower extremity with dressing in place, chronic skin changes noted to bilateral lower extremities Procedures Critical Care Time Critical Care Time Critical care is managing the patient due to presentation with chest pain and concern for acute myocardial infarction requiring my acute intervention. Critical care time is approximately 35 minutes and excludes procedures Medical Decision Making Diagnostic Impression: Primary Impression: ST elevation (STEMI) myocardial infarction Additional Impressions: Chest pain Atrial fibrillation with rapid ventricular response ER Course MDM: 69-year-old male presented for chest pain. He has a history of cholesterol hypertension and diabetes. His story was concerning for acute AK in addition his EKG did have ischemic changes. We did not have a previous EKG to compare. Patient denied any cardiac history or history of A. fib Clinical course-patient was placed on a monitor pulse oximetry, IV inserted, EKG completed. EKG was concerning for ST elevations anteriorly. I discussed the case with [facility] cardiology, Dr. Collazo who agreed with my assessment of concerning EKG changes and agreed to accept patient for transfer for acute STEMI. Patient given aspirin, morphine, nitroglycerin in the ER. Patient was arranged for transfer to outside facility. Labs -pending at time of transfer On reevaluation: Patient's pain mildly improved after analgesics and nitroglycerin Plan-transfer to higher level of care to [facility] EKG Diagnostic Results EKG Time: 11:18 Rate: tachycardiac Rhythm: other - afib ST Segments: other - elevated V2-v5 Other Impression Concern for STEMI ASA given to the pt in ED: Yes Rhythm Strip Diag. Results EP Interpretation: yes Rate: 141 Rhythm: other - Atrial fibrillation with RVR Other Impression A. fib with RVR Chest X-Ray Diagnostic Results Chest X-Ray Diagnostic Results : Chest X-Ray Ordered: Yes # of Views/Limited/Complete: 1 View Indication: Chest Pain EP Interpretation: Yes Interpretation: no consolidation, no effusion, no pneumothorax, other - Mild cardiomegaly Impression: Other - Cardiomegaly with mild pulmonary vascular congestion Last Vital Signs Date Time Temp Pulse Resp B/P (MAP) Pulse Ox O2 Delivery O2 Flow Rate FiO2 03/30/20 10:38 98.1 134 20 180/107 (131) 96 Room Air Status: unchanged Disposition: ADMITTED INPATIENT - Patient will be transferred to outside facility for higher level of care Condition: Critical Referrals: NON PHYSICIAN (PCP) Sonny Vilchis M.D. March 30, 2020 11:33
[2020-03-30 11:41] VITALS: BP 155/108
[2020-03-30 11:48] VITALS: BP 161/98
[2020-03-30 11:52] LABS: BASOPHILS % (AUTO) 0.6 % (0.0-2.0); EOSINOPHILS % (AUTO) 0.4 % (0.0-3.0); HEMATOCRIT 46.4 % (42.0-52.0); HEMOGLOBIN 15.8 G/DL (14.2-18.0); LYMPHOCYTES % (AUTO) 17.2 % (20.0-45.0); MEAN CORPUSCULAR VOLUME 90 FL (80-99); MONOCYTES % (AUTO) 7.1 % (1.0-10.0); NEUTROPHILS % (AUTO) 74.7 % (45.0-75.0); PLATELET COUNT 209 K/UL (150-450); RED BLOOD COUNT 5.14 M/UL (4.70-6.10); RED CELL DISTRIBUTION WIDTH 11.1 % (11.6-14.8); WHITE BLOOD COUNT 9.5 K/UL (4.8-10.8)
[2020-03-30 11:58] LABS: INR 1.1 (0.9-1.1)
--- NOTE | 2020-03-30 12:01 | Diagnostic Imaging Report ---
Indication: Cough Technique: One view of the chest Comparison: none Findings: Interstitial disease is seen in the perihilar regions and at both lung bases. Some consolidation is seen at the right lung base. The heart size is normal. The pleural spaces are clear. Impression: Bilateral interstitial infiltrates as well as some right basilar airspace consolidation. Findings may represent pneumonia.
[2020-03-30 12:08] LABS: ANION GAP 8 mmol/L (5-15); BLOOD UREA NITROGEN 19 mg/dL (7-18); CALCIUM 9.1 MG/DL (8.5-10.1); CARBON DIOXIDE 28 MMOL/L (21-32); CHLORIDE 91 MMOL/L (98-107); CREATININE 1.4 MG/DL (0.55-1.30); POTASSIUM 4.6 MMOL/L (3.5-5.1); SODIUM 127 MMOL/L (136-145)
[2020-03-30 12:23] LABS: ALANINE AMINOTRANSFERASE 32 U/L (12-78); ALBUMIN 3.7 G/DL (3.4-5.0); ALBUMIN/GLOBULIN RATIO 0.8 (1.0-2.7); ALKALINE PHOSPHATASE 109 U/L (46-116); ASPARTATE AMINO TRANSFERASE 32 U/L (15-37)
== END 2020-03-30 11:49 | disposition other institution (70) ==
LOC: EMR 11:15
DX: I21.3 ST elevation (STEMI) myocardial infarction of unspecified site (principal); I48.20 Chronic atrial fibrillation, unspecified; R07.9 Chest pain, unspecified; I10 Essential (primary) hypertension; E11.9 Type 2 diabetes mellitus without complications; E78.00 Pure hypercholesterolemia, unspecified
CPT/HCPCS: 36415; 71045; 80053; 83605; 84484; 85025; 85610; 85730; 87040; 93005; 96374; 99291; J2270